=== PATIENT | female | born 1995 | race Caucasian/White ===

== ENCOUNTER 2017-08-26 05:47 | Emergency (ER) | payer BC ==
--- NOTE | 2017-08-26 07:12 | EDPHYS ---
Physician Documentation [facility] Name: Fadumo Adams Age: 22 yrs Sex: Female : 1995 Arrival Date: 08/26/2017 Time: 05:47 Bed 6 Private MD: TONY Physician Armando Redman HPI: 08/26 06:15 This 22 yrs old Female presents to ER via Wheelchair with complaints of Foot cp Injury. 06:15 The patient presents with an injury, pain, that is acute, swelling, tenderness. The cp complaints affect the right ankle. 06:15 Context: resulted from stepping in hole in ground, the patient can partially bear cp weight, the patient is able to ambulate, with moderate difficulty. 06:15 Onset: The symptoms/episode began/occurred last night. Associated signs and symptoms: cp Pertinent negatives calf tenderness, numbness, weakness. Treatment prior to arrival includes: no previous treatment. Historical: - Allergies: 06:05 Iodinated Contrast Media - IV Dye; aa1 06:05 Iodine; aa1 06:05 Shellfish Containing Products; aa1 06:05 Demerol; aa1 - Home Meds: 06:05 citalopram 40 mg oral tab 1 tab once daily [Active]; Klonopin 1 mg oral tab [Active]; aa1 - PMHx: 06:05 Anxiety; Depression; Hypothyroidism; Kidney stones; aa1 - PSHx: 06:05 Tonsillectomy; aa1 - Immunization history:: Flu vaccine is not up to date. - Social history:: Smoking status: Patient uses tobacco products, denies chronic smoking, but will smoke occasionally. ROS: 06:22 Constitutional: Negative for body aches, chills, fever, poor PO intake. cp 06:22 Eyes: Negative for injury, pain, redness, and discharge. cp 06:22 ENT: Negative for drainage from ear(s), ear pain, sore throat, difficulty swallowing, difficulty handling secretions. 06:22 Cardiovascular: Negative for chest pain, edema, palpitations. 06:22 Respiratory: Negative for cough, shortness of breath, wheezing. 06:22 Abdomen/GI: Negative for abdominal pain, nausea, vomiting, and diarrhea. 06:22 MS/extremity: Positive for pain, swelling, tenderness, of the right ankle, Negative for deformity, paresthesias. 06:22 Skin: Negative for cellulitis, rash. 06:22 All other systems are negative. Exam: 06:28 Constitutional: The patient appears in no acute distress, alert, awake, non-toxic, well cp developed, well nourished. 06:28 Head/Face: Normocephalic, atraumatic. cp 06:28 Eyes: Periorbital structures: appear normal, Conjunctiva: normal, no exudate, no injection, Lids and lashes: appear normal, bilaterally. 06:28 ENT: External ear(s): are unremarkable, Nose: is normal, Mouth: is normal, Posterior pharynx: is normal, airway is patent. 06:28 Chest/axilla: Inspection: normal. 06:28 Cardiovascular: Rate: normal. 06:28 Respiratory: the patient does not display signs of respiratory distress, Respirations: normal, no use of accessory muscles, no retractions, no splinting, no tachypnea. 06:28 Abdomen/GI: Exam negative for discomfort, distension, guarding, Inspection: abdomen appears normal. 06:28 Musculoskeletal/extremity: Perfusion: the extremity is normally perfused throughout, Sensation intact. Joints: All joints are normal except the right ankle displays painful range of motion, swelling, tenderness, Achilles tendon palpated and intact, no tenderness palpated at base of right fifth metatarsal or right proximal fibula. 06:28 Skin: cellulitis, is not appreciated, no rash present. Vital Signs: 06:05 BP 119 / 84; Pulse 89; Resp 16; Temp 98.7; Pulse Ox 98% on R/A; Weight 81.65 kg; Height aa1 5 ft. 5 in. (165.10 cm); Pain 8/10; 06:05 Body Mass Index 29.95 (81.65 kg, 165.10 cm) aa1 Procedures: 07:30 Splinting: Splint applied to right ankle using Air Cast, applied by nurse. Examined by cp me, post splint application: neurovascular intact, Patient tolerated well. 07:30 Crutch training provided to patient and/or family. Return demonstration given. cp MDM: 06:04 Patient medically screened. cp 07:00 Differential diagnosis: dislocation, closed fracture, sprain. cp 07:10 Data reviewed: vital signs, nurses notes, radiologic studies, plain films. cp 07:10 Test interpretation: by ED physician or midlevel provider: plain radiologic studies. cp 07:10 Counseling: I had a detailed discussion with the patient and/or guardian regarding: the cp historical points, exam findings, and any diagnostic results supporting the discharge/admit diagnosis, radiology results, to return to the emergency department if symptoms worsen or persist or if there are any questions or concerns that arise at home. 08/26 06:11 Order name: XRAY Ankle RIGHT 3 view; Complete Time: 18:31 cp 08/26 18:31 Interpretation: Report reviewed. cp 08/26 07:07 Order name: Aircast Ankle Splint; Complete Time: 07:30 cp 08/26 07:07 Order name: Crutches; Complete Time: 07:24 cp Administered Medications: No medications were administered Disposition: 08:04 Co-signature as Attending Physician, Armando Redman MD I agree with the assessment and [facility] plan of care. Disposition: 08/26/17 07:12 Discharged to Home. Impression: Sprain of ankle - Right. - Condition is Stable. - Discharge Instructions: Ankle Sprain. - Prescriptions for Ibuprofen 800 mg Oral Tablet - take 1 tablet by ORAL route every 8 hours As needed take with food; 30 tablet. - Work release form, Medication Reconciliation Form, Thank You Letter, Antibiotic Education, Prescription Opioid Use form. - Follow up: Private Physician; When: 5 - 6 days; Reason: Recheck today's complaints. - Problem is new. - Symptoms have improved. Signatures: Dispatcher [employer] EDOlesya Aviles RN RN sv Kern, Alissa, RN RN aa1 Armando Redman MD MD cha Page, Corey, PA PA cp Corrections: (The following items were deleted from the chart) 07:48 07:12 08/26/2017 07:12 Discharged to Home. Impression: Sprain of ankle - Right. sv Condition is Stable. Forms are Medication Reconciliation Form, Thank You Letter, Antibiotic Education, Prescription Opioid Use. Follow up: Private Physician; When: 5 - 6 days; Reason: Recheck today's complaints. Problem is new. Symptoms have improved. cp
--- NOTE | 2017-08-26 07:12 | ER ---
Nurse's Notes [facility] Name: Fadumo Adams Age: 22 yrs Sex: Female : 1995 Arrival Date: 08/26/2017 Time: 05:47 Bed 6 Private MD: Diagnosis: Sprain of ankle-Right Presentation: 08/26 06:00 Presenting complaint: Patient states: she stepped in a hole last night and injured her aa1 R ankle. Swelling noted. Transition of care: patient was not received from another setting of care. Onset of symptoms was August 25, 2017. Initial Sepsis Screen: Does the patient meet any 2 criteria? No. Patient's initial sepsis screen is negative. Does the patient have a suspected source of infection? No. Patient's initial sepsis screen is negative. Care prior to arrival: None. 06:00 Method Of Arrival: Wheelchair aa1 06:00 Acuity: ESTUARDO 4 aa1 Historical: - Allergies: 06:05 Iodinated Contrast Media - IV Dye; aa1 06:05 Iodine; aa1 06:05 Shellfish Containing Products; aa1 06:05 Demerol; aa1 - Home Meds: 06:05 citalopram 40 mg oral tab 1 tab once daily [Active]; Klonopin 1 mg oral tab [Active]; aa1 - PMHx: 06:05 Anxiety; Depression; Hypothyroidism; Kidney stones; aa1 - PSHx: 06:05 Tonsillectomy; aa1 - Immunization history:: Flu vaccine is not up to date. - Social history:: Smoking status: Patient uses tobacco products, denies chronic smoking, but will smoke occasionally. Screenin:10 Abuse screen: Denies threats or abuse. Denies injuries from another. Nutritional aa1 screening: No deficits noted. Tuberculosis screening: No symptoms or risk factors identified. Fall Risk Gait- Impaired (20 pts.). Assessment: 06:10 General: Appears in no apparent distress. comfortable, Behavior is calm, cooperative, aa1 appropriate for age. Pain: Complains of pain in right ankle. Neuro: Level of Consciousness is awake, alert, obeys commands, Oriented to person, place, time, situation, Moves all extremities. Cardiovascular: Pulses are 3+ in right dorsalis pedis artery and left dorsalis pedis artery. Respiratory: Airway is patent Respiratory effort is even, unlabored, Respiratory pattern is regular, symmetrical. GI: No signs and/or symptoms were reported involving the gastrointestinal system. : No signs and/or symptoms were reported regarding the genitourinary system. EENT: No signs and/or symptoms were reported regarding the EENT system. Derm: Skin is intact, is healthy with good turgor, Skin is pink, warm \T\ dry. Musculoskeletal: Circulation, motion, and sensation intact. Capillary refill < 3 seconds, Swelling present in right ankle. Vital Signs: 06:05 BP 119 / 84; Pulse 89; Resp 16; Temp 98.7; Pulse Ox 98% on R/A; Weight 81.65 kg; Height aa1 5 ft. 5 in. (165.10 cm); Pain 8/10; 06:05 Body Mass Index 29.95 (81.65 kg, 165.10 cm) aa1 ED Course: 05:47 Patient arrived in ED. ds1 05:59 Farnaz Bo RN is Primary Nurse. aa1 06:03 Triage completed. aa1 06:03 Armando Camargo PA is PHCP. cp 06:03 Armando Redman MD is Attending Physician. cp 06:05 Arm band placed on right wrist. Patient placed in an exam room, on a stretcher. aa1 06:10 Patient has correct armband on for positive identification. Bed in low position. Call aa1 light in reach. Pulse ox on. NIBP on. 06:58 X-ray completed. Portable x-ray completed in exam room. Patient tolerated procedure kw well. 06:59 XRAY Ankle RIGHT 3 view In Process Unspecified. EDMS 07:30 Air stirrup applied to right ankle. bm6 07:48 No provider procedures requiring assistance completed. Patient did not have IV access sv during this emergency room visit. Administered Medications: No medications were administered Outcome: 07:12 Discharge ordered by MD. cp 07:48 Discharged to home via wheelchair, with crutches, with family. sv 07:48 Condition: stable 07:48 Discharge instructions given to patient, Instructed on discharge instructions, follow up and referral plans. medication usage, crutch walking, Demonstrated understanding of instructions, follow-up care, medications, crutch walking, Prescriptions given X 1. 07:48 Patient left the ED. sv Signatures: Dispatcher [facility] HospitalOlesya Aviles RN RN sv Farnaz Bo RN RN aa1 Hector, Malorie ds1 Alondra Joya Corey, PA PA cp Murray, Brett [facility]
--- NOTE | 2017-08-26 09:12 | RAD REPORT ---
EXAM DESCRIPTION: RAD - Ankle Right 3 View - 08/26/2017 7:00 am CLINICAL HISTORY: Right ankle pain and swelling. COMPARISON: None. FINDINGS: No acute fracture or dislocation is seen. No aggressive marrow lesion.
== END 2017-08-26 07:48 | disposition home or self-care (01) ==
LOC: ER 05:47
DX: S93.401A Sprain of unspecified ligament of right ankle, initial encounter (principal); X58.XXXA Exposure to other specified factors, initial encounter; Y93.01 Activity, walking, marching and hiking; Y92.9 Unspecified place or not applicable; F41.9 Anxiety disorder, unspecified; F32.9 Major depressive disorder, single episode, unspecified; Z72.0 Tobacco use; Z88.5 Allergy status to narcotic agent; Z91.013 Allergy to seafood; Z91.041 Radiographic dye allergy status
CPT/HCPCS: 99284

== ENCOUNTER 2017-12-09 15:11 | Emergency (ER) | payer BC ==
[2017-12-09] MEDS ORDERED: DERMABOND SKIN ADHESIVE TOP ONE (15:29)
--- NOTE | 2017-12-09 15:40 | ER ---
Nurse's Notes [facility] Name: Fadumo Adams Age: 22 yrs Sex: Female : 1995 Arrival Date: 12/09/2017 Time: 15:14 Bed 19 Private MD: out of town, doctor Diagnosis: Laceration without foreign body, left lower leg-foot Presentation: 12/09 15:22 Presenting complaint: Patient states: " I accidentally kicked a paramjit chainsaw." Small ph laceration noted to top of L foot, no bleeding noted. Transition of care: patient was not received from another setting of care. Complicating Factors: There are no complicating factors for this patient. Onset of symptoms was December 09, 2017. Risk Assessment: Do you want to hurt yourself or someone else? Patient reports no desire to harm self or others. Risk Assessment: Do you want to hurt yourself or someone else?. Initial Sepsis Screen: Does the patient meet any 2 criteria? No. Patient's initial sepsis screen is negative. Does the patient have a suspected source of infection? No. Patient's initial sepsis screen is negative. Care prior to arrival: None. 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 - Social history:: Smoking status: Patient/guardian denies using tobacco. - Ebola Screening: : No symptoms or risks identified at this time. - Family history:: not pertinent. - Hospitalizations: : No recent hospitalization is reported. Screenin:05 Abuse screen: Denies threats or abuse. Denies injuries from another. Nutritional rv screening: No deficits noted. Tuberculosis screening: No symptoms or risk factors identified. Fall Risk None identified. Assessment: 15:30 General: Appears in no apparent distress. comfortable, Behavior is calm, cooperative. rv 15:30 Pain: Complains of pain in left foot. Neuro: Level of Consciousness is awake, alert, rv obeys commands, Oriented to person, place, time, situation. Cardiovascular: Capillary refill < 3 seconds. Respiratory: Airway is patent. GI: No signs and/or symptoms were reported involving the gastrointestinal system. : No signs and/or symptoms were reported regarding the genitourinary system. EENT: No signs and/or symptoms were reported regarding the EENT system. Derm: Wound noted dorsum of left foot Wound is LACERATION. Musculoskeletal: LACERATION ON THE LEFT FOOT. Injury Description: Laceration sustained to dorsum of left foot is clean, 0.5 to 2.5 cm long, not bleeding. Vital Signs: 15:23 BP 133 / 81; Pulse 97; Resp 18; Temp 98.5; Pulse Ox 97% on R/A; Weight 83.91 kg; Height ph 5 ft. 6 in. (167.64 cm); Pain 0/10; 15:23 Body Mass Index 29.86 (83.91 kg, 167.64 cm) ph ED Course: 15:14 Patient arrived in ED. mr 15:14 out of town, doctor is Private Physician. mr 15:20 Skinny Kay MD is Attending Physician. rn 15:23 Triage completed. ph 15:25 Arm band placed on. ph 16:05 No provider procedures requiring assistance completed. Patient did not have IV access rv during this emergency room visit. 16:06 Patient has correct armband on for positive identification. Bed in low position. Call rv light in reach. Side rails up X 1. Pulse ox on. NIBP on. 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 Exp: rv 01/08/2020. Lot #: [id number]. } Route: IM; Site: right deltoid; 15:56 Follow up: Response: Medication administered at discharge. rv Outcome: 15:39 Discharge ordered by . rn 16:05 Discharged to home ambulatory. rv 16:05 Condition: good 16:05 Discharge instructions given to patient, Instructed on discharge instructions, follow up and referral plans. wound care. 16:06 Patient left the ED. rv Signatures: Anjelica Umaña Roman, MD MD rn Marj Mead RN RN Joe Sloan RN RN rv
--- NOTE | 2017-12-09 15:40 | EDPHYS ---
Physician Documentation [facility] Name: Fadumo Adams Age: 22 yrs Sex: Female : 1995 Arrival Date: 12/09/2017 Time: 15:14 Bed 19 Private MD: out of town, doctor ED Physician Skinny Kay HPI: 12/09 15:23 This 22 yrs old Female presents to ER via Unassigned with complaints of rn Laceration To Foot. 15:23 The patient has a laceration related to: playing. The laceration(s) is(are) located on rn the left foot. Onset: The symptoms/episode began/occurred just prior to arrival. The patient has not experienced similar symptoms in the past. The patient has not recently seen a physician. Reports walking outside, accidentally kicked a chainsaw with her left foot, + small cut, unknown tetanus status.. 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 - Social history:: Smoking status: Patient/guardian denies using tobacco. - Ebola Screening: : No symptoms or risks identified at this time. - Family history:: not pertinent. - Hospitalizations: : No recent hospitalization is reported. ROS: 15:23 Constitutional: Negative for fever, chills, and weight loss, Skin: + laceration to left rn foot Exam: 15:23 Constitutional: This is a well developed, well nourished patient who is awake, alert, rn and in no acute distress. Skin: Warm, dry MS/ Extremity: Pulses equal, no cyanosis. Neurovascular intact. Full, normal range of motion. Equal circumference. 1cm superficial laceration to dorsum of left distal foot, no bony tenderness Vital Signs: 15:23 BP 133 / 81; Pulse 97; Resp 18; Temp 98.5; Pulse Ox 97% on R/A; Weight 83.91 kg; Height ph 5 ft. 6 in. (167.64 cm); Pain 0/10; 15:23 Body Mass Index 29.86 (83.91 kg, 167.64 cm) ph Laceration: 15:27 Wound Repair of 1cm ( 0.4in ) subcutaneous laceration to left foot. Distal rn neuro/vascular/tendon intact. Wound prep: Extensive cleansing by nurse. Skin closed with 1 thin layer Adhesive skin closure using Dermabond. Dressed with steristrips. Patient tolerated well. MDM: 15:20 Patient medically screened. rn 15:27 Differential diagnosis: superficial laceration. Data reviewed: vital signs, nurses rn notes, and as a result, I will discharge patient. Counseling: I had a detailed discussion with the patient and/or guardian regarding: the historical points, exam findings, and any diagnostic results supporting the discharge/admit diagnosis, the need for outpatient follow up, to return to the emergency department if symptoms worsen or persist or if there are any questions or concerns that arise at home. Response to treatment: the patient's symptoms have markedly improved after treatment, and as a result, I will discharge patient. 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 Exp: rv 01/08/2020. Lot #: [id number]. } Route: IM; Site: right deltoid; 15:56 Follow up: Response: Medication administered at discharge. rv Disposition: 12/09/17 15:39 Discharged to Home. Impression: Laceration without foreign body, left lower leg - foot. - Condition is Stable. - Discharge Instructions: Tissue Adhesive Wound Care, Laceration Care, Adult, Dental Work and . - Medication Reconciliation Form, Thank You Letter, Antibiotic Education, Prescription Opioid Use, Work release form form. - Follow up: Private Physician; When: As needed; Reason: Recheck today's complaints, Re-evaluation by your physician. - Problem is new. - Symptoms have improved. Signatures: Skinny Kay MD MD rn Hall, Patricia, RN RN ph Vicente, Ronaldo, RN RN rv Corrections: (The following items were deleted from the chart) 16:06 15:39 12/09/2017 15:39 Discharged to Home. Impression: Laceration without foreign body, rv left lower leg - foot. Condition is Stable. Forms are Medication Reconciliation Form, Thank You Letter, Antibiotic Education, Prescription Opioid Use. Follow up: Private Physician; When: As needed; Reason: Recheck today's complaints, Re-evaluation by your physician. Problem is new. Symptoms have improved. rn
[2017-12-09] MEDS ORDERED: TETANUS & DIPHTHERIA TOX,ADULT 0.5 ML VIAL ONE (15:56)
== END 2017-12-09 16:06 | disposition home or self-care (01) ==
LOC: ER 15:11
PROC: 0JQR0ZZ Repair Left Foot Subcutaneous Tissue and Fascia, Open Approach (ICD-10-PCS; principal; 2017-12-09)
DX: S91.312A Laceration without foreign body, left foot, initial encounter (principal); W22.8XXA Striking against or struck by other objects, initial encounter; Y93.89 Activity, other specified; Y92.89 Other specified places as the place of occurrence of the external cause; Z23 Encounter for immunization; Z88.5 Allergy status to narcotic agent; Z91.013 Allergy to seafood; Z91.041 Radiographic dye allergy status; Z91.048 Other nonmedicinal substance allergy status; F41.9 Anxiety disorder, unspecified; F32.9 Major depressive disorder, single episode, unspecified
CPT/HCPCS: 90714; 99283

== ENCOUNTER 2018-07-26 13:47 | Emergency (ER) | payer BC ==
[2018-07-26 14:31] LABS: Urine Blood TRACE (NEG); Urine Glucose NEGATIVE (NEG); Urine Protein NEGATIVE (NEG)
[2018-07-26] MEDS ORDERED: METOCLOPRAMIDE 10 MG/2mL INJ ONE (14:39)
[2018-07-26] MEDS ORDERED: ONDANSETRON 4 MG/2 ML VIAL ONE (14:40)
[2018-07-26] MEDS ORDERED: DIPHENHYDRAMINE 50 MG/ML VIAL ONE (14:40)
[2018-07-26] MEDS ORDERED: NA CHLORIDE 0.9% 250 ML ONE (14:44)
[2018-07-26 14:56] LABS: Absolute Lymphocytes (CBC) 2.5 K/uL (0.7-4.9); Absolute Monocytes 0.4 K/uL (0.1-1.3); Absolute Neutrophil 3.5 K/uL (1.8-8.0); Basophils % 0.5 % (0-1.3); Eosinophils % 2.1 % (0-4.4); Hematocrit 44.8 % (36.0-45.0); Lymphocytes % 37.6 % (15.3-44.8); MPV 8.7 fL (7.6-11.3); Monocytes % 6.1 % (3.3-12.3); RBC Red Blood Cell Count 5.22 M/uL (3.86-4.86)
--- NOTE | 2018-07-26 14:57 | RAD REPORT ---
EXAM DESCRIPTION: CT - Head Brain Wo Cont - 07/26/2018 2:52 pm CLINICAL HISTORY: Headache, blurred vision COMPARISON: None. TECHNIQUE: Axial 5 mm thick images of the head were obtained without IV contrast. All CT scans are performed using dose optimization technique as appropriate and may include automated exposure control or mA/KV adjustment according to patient size. FINDINGS: No intracranial hemorrhage, mass, edema or shift of mid-line structures. No acute infarcti on changes seen. No abnormal extra-axial fluid collections. Ventricles are normal. Mastoid air cells and visualized portions of the paranasal sinuses are clear. No acute bony findings. IMPRESSION: Negative non-contrast CT head examination.
[2018-07-26 15:07] LABS: ALT/SGPT 28 U/L (12-78); AST/SGOT 18 U/L (15-37); Albumin 4.2 g/dL (3.4-5.0); Alkaline Phosphatase 81 U/L (45-117); BUN Blood Urea Nitrogen 12 mg/dL (7-18); Bicarbonate 30 mmol/L (21-32); Bilirubin Total 0.3 mg/dL (0.2-1.0); Glucose Level 91 mg/dL (74-106); Potassium 4.2 mmol/L (3.5-5.1); Sodium Level 140 mmol/L (136-145)
[2018-07-26] MEDS ORDERED: KETOROLAC 30 MG/ML INJ ONE (15:42)
[2018-07-26] MEDS ORDERED: DEXAMETHASONE 10 MG/ML VIAL ONE (15:42)
--- NOTE | 2018-07-26 16:34 | EDPHYS ---
Physician Documentation [facility] Name: Fadumo Adams Age: 22 yrs Sex: Female : 1995 Arrival Date: 07/26/2018 Time: 13:49 Bed 19 Private MD: Bashir Lanier ED Physician Armando Redman HPI: 07/26 14:21 This 22 yrs old Female presents to ER via Ambulatory with complaints of jmm Headache, Numbness Of Face, Muscle Spasms. 14:21 The patient complains of pain to the right temporal area. The patient describes the jmm headache as aching. Onset: The symptoms/episode began/occurred gradually, 1 day(s) ago. Associated signs and symptoms: Pertinent positives: blurred vision. This is a 22 year old female with a history of anxiety, depression, migraines that presents to the ED with complaints of right sided headache gradually developing 1 day ago with blurred vision, sensitivity to light. Patient states today she developed generalized muscle aches and spasms. . Denies fever. . Historical: - Allergies: 13:55 Iodinated Contrast Media - IV Dye; la1 13:55 Demerol; la1 13:55 Iodine; la1 13:55 Shellfish Containing Products; la1 13:55 PENICILLINS; la1 13:55 Wellbutrin; la1 - PMHx: 13:55 Anxiety; Depression; Hypothyroidism; Kidney stones; Migraines; la1 - Immunization history:: Adult Immunizations up to date. - Social history:: Smoking status: Patient/guardian denies using tobacco. - Ebola Screening: : No symptoms or risks identified at this time. ROS: 14:21 Constitutional: Negative for fever, chills, and weight loss, Cardiovascular: Negative jmm for chest pain, palpitations, and edema, Respiratory: Negative for shortness of breath, cough, wheezing, and pleuritic chest pain. 14:21 Neuro: Positive for headache, numbness, visual changes. 14:21 All other systems are negative. Exam: 14:21 Head/Face: atraumatic. Eyes: EOMI, no conjunctival erythema appreciated ENT: Moist jmm Mucus Membranes Neck: Trachea midline, Supple Chest/axilla: Normal chest wall appearance and motion. Cardiovascular: Regular rate and rhythm. No edema appreciated Respiratory: Normal respirations, no respiratory distress appreciated Abdomen/GI: Non distended, soft Back: Normal ROM 14:21 Constitutional: The patient appears alert, awake, anxious, uncomfortable. 14:21 Musculoskeletal/extremity: ROM: intact in all extremities. 14:21 Neuro: Orientation: is normal, Mentation: is normal, Memory: is normal, Cerebellar function: normal finger to nose testing, Gait: is steady. 14:21 Psych: Behavior/mood is pleasant, cooperative, anxious. Vital Signs: 13:55 BP 127 / 74; Pulse 102; Resp 16; Temp 97.5; Pulse Ox 98% on R/A; Weight 79.38 kg; la1 Height 5 ft. 6 in. (167.64 cm); 15:00 BP 112 / 68; Pulse 79; Resp 18; Pulse Ox 99% on R/A; Pain 7/10; em 16:00 BP 108 / 74; Pulse 87; Resp 18; Pulse Ox 99% on R/A; Pain 0/10; em 13:55 Body Mass Index 28.25 (79.38 kg, 167.64 cm) la1 MDM: 14:21 Patient medically screened. [facility] 16:00 ED course: Headache is relieved in the ED. Patient's neck is supple. patient is [facility] afebrile. I do not suspect meningitis. Patient advised to follow up with Dr. Benedict for reevaluation. . 16:32 Data reviewed: vital signs, nurses notes. Counseling: I had a detailed discussion with [facility] the patient and/or guardian regarding: the historical points, exam findings, and any diagnostic results supporting the discharge/admit diagnosis, the need for outpatient follow up, to return to the emergency department if symptoms worsen or persist or if there are any questions or concerns that arise at home. 07/26 14:22 Order name: CBC with Diff; Complete Time: 15:09 [facility] 07/26 14:22 Order name: CMP; Complete Time: 15: [facility] 07/26 14:22 Order name: CT Head Brain wo Cont; Complete Time: 15:09 [facility] 07/26 14:28 Order name: Urine Dipstick--Ancillary (enter results); Complete Time: 14:31 07/26 14:28 Order name: Urine --Ancillary (enter results); Complete Time: 14:31 07/26 14:22 Order name: Saline Lock; Complete Time: 14:47 [facility] 04 14:22 Order name: Urine Dipstick-Ancillary (obtain specimen); Complete Time: 14:26 [facility] Administered Medications: 14:47 Drug: Reglan 20 mg Route: IVP; Site: right antecubital; la1 15:30 Follow up: Response: No adverse reaction em 14:47 Drug: diphenhydrAMINE 25 mg Route: IVP; Site: right antecubital; la1 15:30 Follow up: Response: No adverse reaction; Pain is decreased em 14:48 Drug: NS 0.9% 250 ml Route: IV; Rate: bolus; Site: right antecubital; la1 15:30 Follow up: IV Status: Completed infusion; IV Intake: 250ml em 15:38 Drug: Ketorolac 30 mg Route: IVP; Site: right antecubital; la1 16:00 Follow up: Response: No adverse reaction; Pain is decreased em 15:38 Drug: Decadron - Dexamethasone 10 mg Route: IVP; Site: right antecubital; la1 16:00 Follow up: Response: No adverse reaction; Pain is decreased em Disposition: 07/27 08:16 Co-signature as Attending Physician, Armando Redman MD I agree with the assessment and yefri plan of care. Disposition: 07/26/18 16:33 Discharged to Home. Impression: Migraine. - Condition is Stable. - Discharge Instructions: Migraine Headache. - Medication Reconciliation Form, Thank You Letter, Antibiotic Education, Prescription Opioid Use form. - Follow up: Nii Benedict MD; When: 2 - 3 days; Reason: Recheck today's complaints, Continuance of care, Re-evaluation by your physician. Signatures: Dispatcher [employer] Armando Mcmanus MD MD cha Mickail, Joel, PA PA [facility] Humza Mendez, BOND RUNNER BOND RUNNER Dada Choi RN RN la1 Corrections: (The following items were deleted from the chart) 07/26 16:56 16:33 07/26/2018 16:33 Discharged to Home. Impression: Migraine. Condition is Stable. em Forms are Medication Reconciliation Form, Thank You Letter, Antibiotic Education, Prescription Opioid Use. Follow up: Nii Benedict; When: 2 - 3 days; Reason: Recheck today's complaints, Continuance of care, Re-evaluation by your physician. danielle
--- NOTE | 2018-07-26 16:34 | ER ---
Nurse's Notes [facility] Name: Fadumo Adams Age: 22 yrs Sex: Female : 1995 Arrival Date: 07/26/2018 Time: 13:49 Bed 19 Private MD: Bashir Lanier Diagnosis: Migraine Presentation: 07/26 13:53 Presenting complaint: Patient states: Yesterday my muscles started having spasms and la1 then around 1700 my vision got a little blurry and weird, then I got a headache, I have had migraines before but the vision is worse with this one and I am having pain on the right side of my face. Transition of care: patient was not received from another setting of care. Onset of symptoms was July 26, 2018. Risk Assessment: Do you want to hurt yourself or someone else? Patient reports no desire to harm self or others. Initial Sepsis Screen: Does the patient meet any 2 criteria? No. Patient's initial sepsis screen is negative. Does the patient have a suspected source of infection? No. Patient's initial sepsis screen is negative. Care prior to arrival: None. 13:53 Method Of Arrival: Ambulatory la1 13:53 Acuity: ESTUARDO 3 la1 Historical: - Allergies: 13:55 Iodinated Contrast Media - IV Dye; la1 13:55 Demerol; la1 13:55 Iodine; la1 13:55 Shellfish Containing Products; la1 13:55 PENICILLINS; la1 13:55 Wellbutrin; la1 - PMHx: 13:55 Anxiety; Depression; Hypothyroidism; Kidney stones; Migraines; la1 - Immunization history:: Adult Immunizations up to date. - Social history:: Smoking status: Patient/guardian denies using tobacco. - Ebola Screening: : No symptoms or risks identified at this time. Screenin:56 VAN Screening: Arm Drift: Patient shows no arm weakness. Patient is VAN negative. la1 14:05 Abuse screen: Denies threats or abuse. Nutritional screening: No deficits noted. em Tuberculosis screening: No symptoms or risk factors identified. Fall Risk None identified. Assessment: 14:10 General: Appears in no apparent distress. comfortable, Behavior is calm, cooperative, em Denies fever. Pain: Complains of pain in right temporal area Pain currently is 9 out of 10 on a pain scale. Quality of pain is described as sharp. Neuro: Level of Consciousness is awake, alert, obeys commands, Oriented to person, place, time, situation, Salt Cutter are equal bilaterally Moves all extremities. Gait is steady, Speech is normal, Facial symmetry appears normal, Pupils are PERRLA, Reports dizziness, headache in right paresthesias weakness. Cardiovascular: Denies chest pain, Heart tones S1 S2 present Capillary refill < 3 seconds Patient's skin is warm and dry. Respiratory: Reports cough that is Airway is patent Respiratory effort is even, unlabored, Respiratory pattern is regular, symmetrical, Breath sounds are clear bilaterally. GI: Abdomen is flat, Reports nausea, vomiting. : Urine is clear. EENT: Denies nasal congestion. Derm: Skin is intact, is healthy with good turgor, Skin is pink, warm \T\ dry. Musculoskeletal: Capillary refill < 3 seconds, Range of motion: intact in all extremities. 14:25 Reassessment: I agree with previous assessment. hb 15:00 Reassessment: Patient appears in no apparent distress at this time. Patient is alert, em oriented x 3, equal unlabored respirations, skin warm/dry/pink. reports feeling slightly better, rates pain 7/10. 16:00 Reassessment: Patient appears in no apparent distress at this time. Patient and/or em family updated on plan of care and expected duration. Pain level reassessed. Patient is alert, oriented x 3, equal unlabored respirations, skin warm/dry/pink. Patient denies pain at this time. Patient states feeling better. Patient states symptoms have improved. Vital Signs: 13:55 BP 127 / 74; Pulse 102; Resp 16; Temp 97.5; Pulse Ox 98% on R/A; Weight 79.38 kg; la1 Height 5 ft. 6 in. (167.64 cm); 15:00 BP 112 / 68; Pulse 79; Resp 18; Pulse Ox 99% on R/A; Pain 7/10; em 16:00 BP 108 / 74; Pulse 87; Resp 18; Pulse Ox 99% on R/A; Pain 0/10; em 13:55 Body Mass Index 28.25 (79.38 kg, 167.64 cm) la1 ED Course: 13:49 Patient arrived in ED. as 13:49 Bashir Lanier MD is Private Physician. as 13:54 Triage completed. la1 13:55 Arm band placed on left wrist. la1 13:59 Humza Mendez LVN is Primary Nurse. em 14:03 Jeromy Rothman PA is PHCP. jmm 14:03 Armando Redman MD is Attending Physician. jmm 14:05 Patient has correct armband on for positive identification. Placed in gown. Bed in low em position. Call light in reach. Pulse ox on. NIBP on. 14:45 Initial lab(s) drawn, by me, sent to lab. Urine collected: clean catch specimen, clear. em Inserted saline lock: 20 gauge in right antecubital area, using aseptic technique. Blood collected. 14:51 CT completed. Patient tolerated procedure well. Patient moved back from CT. mw3 14:51 CT Head Brain wo Cont In Process Unspecified. EDMS 16:32 Nii Benedict MD is Referral Physician. jmm 16:54 No provider procedures requiring assistance completed. IV discontinued, intact, em bleeding controlled, No redness/swelling at site. Pressure dressing applied. Administered Medications: 14:47 Drug: Reglan 20 mg Route: IVP; Site: right antecubital; la1 15:30 Follow up: Response: No adverse reaction em 14:47 Drug: diphenhydrAMINE 25 mg Route: IVP; Site: right antecubital; la1 15:30 Follow up: Response: No adverse reaction; Pain is decreased em 14:48 Drug: NS 0.9% 250 ml Route: IV; Rate: bolus; Site: right antecubital; la1 15:30 Follow up: IV Status: Completed infusion; IV Intake: 250ml em 15:38 Drug: Ketorolac 30 mg Route: IVP; Site: right antecubital; la1 16:00 Follow up: Response: No adverse reaction; Pain is decreased em 15:38 Drug: Decadron - Dexamethasone 10 mg Route: IVP; Site: right antecubital; la1 16:00 Follow up: Response: No adverse reaction; Pain is decreased em Intake: 15:30 IV: 250ml; Total: 250ml. em Outcome: 16:33 Discharge ordered by . jmm 16:54 Discharged to home ambulatory, with family. em 16:54 Condition: good 16:54 Discharge instructions given to patient, Instructed on discharge instructions, follow up and referral plans. Demonstrated understanding of instructions, follow-up care. 16:56 Patient left the ED. em Signatures: Dispatcher [employer] Jeromy Gaxiola PA PA jmm Munoz, Edgar, GROUP PRACTICE PEDIATRICIAN GROUP PRACTICE PEDIATRICIAN Jayashree Sanches Lee RN RN la1 Joy Hsu RN RN Bethany Dumont mw3
== END 2018-07-26 16:56 | disposition home or self-care (01) ==
LOC: ER 13:47
DX: G43.909 Migraine, unspecified, not intractable, without status migrainosus (principal); F41.9 Anxiety disorder, unspecified; F32.9 Major depressive disorder, single episode, unspecified; E03.9 Hypothyroidism, unspecified; Z88.8 Allergy status to other drugs, medicaments and biological substances; Z91.041 Radiographic dye allergy status; Z88.5 Allergy status to narcotic agent; Z88.0 Allergy status to penicillin; Z91.013 Allergy to seafood
CPT/HCPCS: 36415; 70450; 80053; 81003; 81025; 85025; 96361; 96374; 96375; 99284; J1100; J2405; J2765

== ENCOUNTER 2018-08-08 22:16 | Emergency (ER) | payer BC ==
[2018-08-08] MEDS ORDERED: CODEINE 30MG/APAP 300MG TAB ONE ×2 (23:02→23:28)
[2018-08-08] MEDS ORDERED: CYCLOBENZAPRINE 10 MG TAB ONE (23:02)
[2018-08-08] MEDS ORDERED: IBUPROFEN 200 MG TAB PO ONE (23:03)
--- NOTE | 2018-08-09 00:28 | ER ---
Nurse's Notes [facility] Name: Fadumo Adams Age: 22 yrs Sex: Female : 1995 Arrival Date: 08/08/2018 Time: 22:18 Bed 16 Private MD: Bashir Lanier Diagnosis: Migraine Presentation: 08/08 22:22 Presenting complaint: Patient states: For the past 2 weeks every day I have had a la1 headache, I threw up once today. Pt seen here and at PCP but not getting any better. Transition of care: patient was not received from another setting of care. Onset of symptoms was August 08, 2018. Risk Assessment: Do you want to hurt yourself or someone else? Patient reports no desire to harm self or others. Initial Sepsis Screen: Does the patient meet any 2 criteria? No. Patient's initial sepsis screen is negative. Does the patient have a suspected source of infection? No. Patient's initial sepsis screen is negative. Care prior to arrival: None. 22:22 Method Of Arrival: Ambulatory la1 22:22 Acuity: ESTUARDO 3 la1 Triage Assessment: 22:45 Headache History: The patient has had previous headaches and this one is more severe jb4 than previous episodes. General: Appears in no apparent distress. uncomfortable, Behavior is calm, cooperative. Pain: Also complains of. Pain: Pain began gradually. NURSE OFFICE: 22:21 LMP 08/08/2018 la1 Historical: - Allergies: 22:21 Demerol; la1 22:21 Iodinated Contrast Media - IV Dye; la1 22:21 Iodine; la1 22:21 PENICILLINS; la1 22:21 Shellfish Containing Products; la1 22:21 Wellbutrin; la1 - Home Meds: 08/09 00:33 Clonazepam Oral [Active]; Propranolol Oral [Active]; Fluoxetine Oral [Active]; jb4 montelukast oral oral [Active]; Claritin Oral [Active]; - PMHx: 08/08 22:21 Anxiety; Depression; Hypothyroidism; Kidney stones; Migraines; la1 - Immunization history:: Adult Immunizations up to date. - Social history:: Smoking status: Patient/guardian denies using tobacco. - Ebola Screening: : No symptoms or risks identified at this time. Screenin:45 Abuse screen: Denies threats or abuse. Nutritional screening: No deficits noted. jb4 Tuberculosis screening: No symptoms or risk factors identified. Fall Risk None identified. Assessment: 22:45 General: Appears in no apparent distress. uncomfortable, Behavior is calm, cooperative, jb4 appropriate for age. Pain: Complains of pain in headache Pain radiates to jaw, neck Pain currently is 10 out of 10 on a pain scale. Quality of pain is described as pressure. Neuro: Level of Consciousness is awake, alert, obeys commands, Oriented to person, place, time, situation. Cardiovascular: Patient's skin is warm and dry. Respiratory: Airway is patent Respiratory effort is even, unlabored, Respiratory pattern is regular, symmetrical. GI: No signs and/or symptoms were reported involving the gastrointestinal system. : No signs and/or symptoms were reported regarding the genitourinary system. EENT: No signs and/or symptoms were reported regarding the EENT system. Derm: Skin is intact, Skin is pink, warm \T\ dry. Musculoskeletal: Circulation, motion, and sensation intact. Range of motion: intact in all extremities. 08/09 00:00 Reassessment: Patient appears in no apparent distress at this time. Patient and/or jb4 family updated on plan of care and expected duration. Pain level reassessed. Patient is alert, oriented x 3, equal unlabored respirations, skin warm/dry/pink. Patient states feeling better. 00:59 Reassessment: Patient appears in no apparent distress at this time. Patient and/or jb4 family updated on plan of care and expected duration. Pain level reassessed. Patient is alert, oriented x 3, equal unlabored respirations, skin warm/dry/pink. PT discharged with significant other, reports feeling better. ambulates to the lobby with steady gate. respirations even and unlabored. Vital Signs: 08/08 22:21 BP 129 / 98; Pulse 108; Resp 16; Temp 98.1; Pulse Ox 98% on R/A; Weight 79.38 kg; la1 Height 5 ft. 6 in. (167.64 cm); 23:30 BP 126 / 88; Pulse 74; Resp 16; Pulse Ox 99% on R/A; jb4 08/09 00:30 BP 123 / 69; Pulse 78; Resp 16; Pulse Ox 99% on R/A; jb4 08/08 22:21 Body Mass Index 28.25 (79.38 kg, 167.64 cm) la1 ED Course: 08/08 22:18 Patient arrived in ED. es 22:18 Bashir Lanier MD is Private Physician. es 22:21 Arm band placed on right wrist. la1 22:23 Triage completed. la1 22:25 [facility] pm1 22:25 Cooper Diggs MD is Attending Physician. pm1 22:42 Hugo Kasper, RN is Primary Nurse. jb4 22:45 Patient has correct armband on for positive identification. Bed in low position. Call jb4 light in reach. Side rails up X 1. Pulse ox on. NIBP on. 08/09 00:47 Nii Benedict MD is Referral Physician. pm1 00:59 No provider procedures requiring assistance completed. Patient did not have IV access jb4 during this emergency room visit. Administered Medications: 08/08 23:00 Drug: Flexeril 10 mg Route: PO; jb4 08/09 00:00 Follow up: Response: No adverse reaction; Pain is decreased jb4 08/08 23:00 Drug: Ibuprofen 600 mg Route: PO; jb4 08/09 00:00 Follow up: Response: No adverse reaction; Pain is decreased jb4 08/08 23:00 Drug: Tylenol #3 (300 mg-30 mg) 2 tabs Route: PO; jb4 08/09 00:00 Follow up: Response: No adverse reaction; Pain is decreased jb4 Outcome: 00:27 Discharge ordered by MD. pm1 00:59 Discharged to home ambulatory, with significant other. jb4 00:59 Condition: stable 00:59 Discharge instructions given to patient, significant other, Instructed on discharge instructions, follow up and referral plans. Demonstrated understanding of instructions, follow-up care. 01:05 Patient left the ED. jb4 Signatures: Narcisa Zazueta Lee, RN RN la1 Domenic Sutton NP [facility] pm1 Hugo Kasper, RN RN jb4 Corrections: (The following items were deleted from the chart) 08/08 22:23 22:21 BP 129 / 198; Pulse 108bpm; Resp 16bpm; Pulse Ox 98% RA; Temp 98.1F; 79.38 kg; la1 Height 5 ft. 6 in.; BMI: 28.2; la1
--- NOTE | 2018-08-09 00:28 | EDPHYS ---
Physician Documentation [facility] Name: Fadumo Adams Age: 22 yrs Sex: Female : 1995 Arrival Date: 08/08/2018 Time: 22:18 Bed 16 Private MD: Bashir Lanier ED Physician Cooper Diggs HPI: 08/08 23:01 This 22 yrs old Female presents to ER via Ambulatory with complaints of pm1 Headache. 23:01 The patient complains of pain to the top of head, forehead, left side of the back of pm1 head, left occipital area, left base of the skull, right side of the back of head, right occipital area and right base of the skull. The patient describes the headache as aching. Onset: The symptoms/episode began/occurred 3 week(s) ago. Associated signs and symptoms: Pertinent positives: nausea, vomiting, Pertinent negatives: fever. Severity of symptoms: in the emergency department the pain is unchanged. Headache History: The patient has had previous headaches and this one is similar to previous episodes. The symptoms are alleviated by Darkened room, quiet. The patient has experienced similar episodes in the past, multiple times. Dr. Benedict two days ago for the same complaint in the ER two weeks ago. Medications given by Dr Benedict did not help per patient. 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 - Social history:: Smoking status: Patient/guardian denies using tobacco. - Ebola Screening: : No symptoms or risks identified at this time. ROS: 23:01 Constitutional: Negative for fever, chills, and weight loss, Eyes: Negative for injury, pm1 pain, redness, and discharge, ENT: Negative for injury, pain, and discharge, Neck: Negative for injury, pain, and swelling, Cardiovascular: Negative for chest pain, palpitations, and edema, Respiratory: Negative for shortness of breath, cough, wheezing, and pleuritic chest pain. 23:01 Back: Negative for injury and pain, : Negative for injury, bleeding, discharge, and swelling, MS/Extremity: Negative for injury and deformity, Skin: Negative for injury, rash, and discoloration. 23:01 Abdomen/GI: Positive for nausea, Negative for abdominal pain, vomiting, diarrhea. 23:01 Neuro: Positive for headache, Negative for dizziness, numbness, tingling, weakness. Exam: 23:01 Constitutional: This is a well developed, well nourished patient who is awake, alert, pm1 and in no acute distress. Eyes: Pupils equal round and reactive to light, extra-ocular motions intact. Lids and lashes normal. Conjunctiva and sclera are non-icteric and not injected. Cornea within normal limits. Periorbital areas with no swelling, redness, or edema. ENT: Nares patent. No nasal discharge, no septal abnormalities noted. Tympanic membranes are normal and external auditory canals are clear. Oropharynx with no redness, swelling, or masses, exudates, or evidence of obstruction, uvula midline. Mucous membranes moist. 23:01 Neck: Trachea midline, no thyromegaly or masses palpated, and no cervical lymphadenopathy. Supple, full range of motion without nuchal rigidity, or vertebral point tenderness. No Meningismus. Chest/axilla: Normal chest wall appearance and motion. Nontender with no deformity. No lesions are appreciated. Cardiovascular: Regular rate and rhythm with a normal S1 and S2. No gallops, murmurs, or rubs. Normal PMI, no JVD. No pulse deficits. Respiratory: Lungs have equal breath sounds bilaterally, clear to auscultation and percussion. No rales, rhonchi or wheezes noted. No increased work of breathing, no retractions or nasal flaring. Abdomen/GI: Soft, non-tender, with normal bowel sounds. No distension or tympany. No guarding or rebound. No evidence of tenderness throughout. Back: No spinal tenderness. No costovertebral tenderness. Full range of motion. Skin: Warm, dry with normal turgor. Normal color with no rashes, no lesions, and no evidence of cellulitis. MS/ Extremity: Pulses equal, no cyanosis. Neurovascular intact. Full, normal range of motion. 23:01 Head/face: Noted is no obvious of injury or deformity except tenderness, of the top of head, forehead, left side of the back of head, left occipital area, left base of the skull, right side of the back of head, right occipital area and right base of the skull. 23:01 Neuro: Orientation: is normal, Cranial nerves: CN II- XII are normal as tested, Cerebellar function: normal finger to nose testing, Motor: is normal, moves all fours, Sensation: is normal, no obvious gross deficits, Gait: is steady, at a normal pace, without difficulty. Vital Signs: 22:21 BP 129 / 98; Pulse 108; Resp 16; Temp 98.1; Pulse Ox 98% on R/A; Weight 79.38 kg; la1 Height 5 ft. 6 in. (167.64 cm); 23:30 BP 126 / 88; Pulse 74; Resp 16; Pulse Ox 99% on R/A; jb4 08/09 00:30 BP 123 / 69; Pulse 78; Resp 16; Pulse Ox 99% on R/A; jb4 08/08 22:21 Body Mass Index 28.25 (79.38 kg, 167.64 cm) la1 MDM: 08/08 22:27 Patient medically screened. pm1 22:49 ED course: Offered to give the patient Reglan, Benadryl, and Toradol for her headache. pm1 When she was here last time the medications reduced her pain. However she believes that she had a reaction to the medications, possibly Decadron from the last visit, redness to upper body and face. Reglan and Decadron were new to her at that time. Patient requested medication by mouth and I do not want to give her medications that she might have a potential allergic reaction too. 08/09 00:18 Data reviewed: vital signs. Data interpreted: Pulse oximetry: on room air is 98 %. pm1 Interpretation: normal. Counseling: I had a detailed discussion with the patient and/or guardian regarding: the historical points, exam findings, and any diagnostic results supporting the discharge/admit diagnosis, the need for outpatient follow up, for definitive care, a neurologist, to return to the emergency department if symptoms worsen or persist or if there are any questions or concerns that arise at home. Administered Medications: 08/08 23:00 Drug: Flexeril 10 mg Route: PO; jb4 08/09 00:00 Follow up: Response: No adverse reaction; Pain is decreased 4 08/08 23:00 Drug: Ibuprofen 600 mg Route: PO; 4 08/09 00:00 Follow up: Response: No adverse reaction; Pain is decreased 4 08/08 23:00 Drug: Tylenol #3 (300 mg-30 mg) 2 tabs Route: PO; jb4 08/09 00:00 Follow up: Response: No adverse reaction; Pain is decreased jb4 Disposition: 08/09/18 00:27 Discharged to Home. Impression: Migraine. - Condition is Stable. - Discharge Instructions: Migraine Headache. - Medication Reconciliation Form, Thank You Letter, Antibiotic Education, Prescription Opioid Use form. - Follow up: Emergency Department; When: As needed; Reason: Worsening of condition. Follow up: Private Physician; When: 2 - 3 days; Reason: Recheck today's complaints, Continuance of care, Re-evaluation by your physician. Follow up: Nii Benedict MD; When: 2 - 3 days; Reason: Recheck today's complaints, Continuance of care, Re-evaluation by your physician. - Problem is new. - Symptoms have improved. Addendum: 08/11/2018 01:25 Co-signature as Attending Physician, Cooper Diggs MD. g s Signatures: Dada Browning RN RN la1 Domenic Sutton NP AUTOMOBILE LIGHTS ASSEMBLER pm1 Hugo Kasper RN RN jb4 Cooper Diggs MD MD Corrections: (The following items were deleted from the chart) 08/09 00:47 00:27 08/09/2018 00:27 Discharged to Home. Impression: Migraine. Condition is Stable. pm1 Forms are Medication Reconciliation Form, Thank You Letter, Antibiotic Education, Prescription Opioid Use. Follow up: Emergency Department; When: As needed; Reason: Worsening of condition. Follow up: Private Physician; When: 2 - 3 days; Reason: Recheck today's complaints, Continuance of care, Re-evaluation by your physician. Problem is new. Symptoms have improved. pm1 01:05 00:47 08/09/2018 00:27 Discharged to Home. Impression: Migraine. Condition is Stable. jb4 Discharge Instructions: Migraine Headache. Forms are Medication Reconciliation Form, Thank You Letter, Antibiotic Education, Prescription Opioid Use. Follow up: Emergency Department; When: As needed; Reason: Worsening of condition. Follow up: Private Physician; When: 2 - 3 days; Reason: Recheck today's complaints, Continuance of care, Re-evaluation by your physician. Follow up: Nii Benedict; When: 2 - 3 days; Reason: Recheck today's complaints, Continuance of care, Re-evaluation by your physician. Problem is new. Symptoms have improved. pm1
== END 2018-08-09 01:05 | disposition home or self-care (01) ==
LOC: ER 22:16
DX: G43.909 Migraine, unspecified, not intractable, without status migrainosus (principal); F41.9 Anxiety disorder, unspecified; F32.9 Major depressive disorder, single episode, unspecified; E03.9 Hypothyroidism, unspecified; Z91.041 Radiographic dye allergy status; Z88.5 Allergy status to narcotic agent; Z88.0 Allergy status to penicillin; Z91.013 Allergy to seafood
CPT/HCPCS: 99283

== ENCOUNTER 2019-05-05 18:03 | Emergency (ER) | payer BC ==
--- OUTSIDE RECORDS SUMMARY | 2019-05-05 18:06 | XMS REPORT ---
:1995 [facility] Address [address] [place] [address] [place] [id number] Care Team Providers Name Role Phone Unavailable Unavailable Unavailable Problems This patient has no known problems. Allergies, Adverse Reactions, Alerts This patient has no known allergies or adverse reactions. Medications This patient has no known medications.
[2019-05-05 18:41] LABS: Absolute Lymphocytes (CBC) 3.6 K/uL (0.7-4.9); Basophils % 0.7 % (0-1.3); Hematocrit 43.7 % (36.0-45.0); Lymphocytes % 31.5 % (15.3-44.8); MPV 8.3 fL (7.6-11.3)
[2019-05-05 18:48] LABS: Urine Blood NEGATIVE (NEG); Urine Glucose NEGATIVE (NEG); Urine Protein NEGATIVE (NEG); Urine Specific Gravity <1.005 (1.005-1.030); Urine pH 5.5 (5.0-7.0)
[2019-05-05] MEDS ORDERED: KETOROLAC 30 MG/ML INJ ONE (18:51)
[2019-05-05] MEDS ORDERED: NA CHLORIDE 0.9% 1,000 ML ONE (18:51)
[2019-05-05 18:58] LABS: BUN Blood Urea Nitrogen 10 mg/dL (7-18); Bicarbonate 26 mmol/L (21-32); Glucose Level 116 mg/dL (74-106); Potassium 3.9 mmol/L (3.5-5.1); Sodium Level 141 mmol/L (136-145)
[2019-05-05 19:37] LABS: Urine Bacteria <20 /HPF (<20); Urine Culture Reflex Order REFLEXED; Urine Mucus 1+ /HPF (NONE SEEN); Urine RBC <5 /HPF (NONE SEEN)
[2019-05-05] MEDS ORDERED: LORAZEPAM 1 MG TABLET ONE (19:42)
[2019-05-05] MEDS ORDERED: CYCLOBENZAPRINE 10 MG TAB ONE (20:07)
[2019-05-05] MEDS ORDERED: HYDROCODONE/APAP 7.5/325 MG TAB ONE (20:07)
--- NOTE | 2019-05-05 20:31 | ER ---
Nurse's Notes [facility] Name: Fadumo Adams Age: 23 yrs Sex: Female : 1995 Arrival Date: 05/05/2019 Time: 18:06 Bed 19 Private MD: Diagnosis: Cervalgia;Cough Presentation: 05/05 18:06 Presenting complaint: Patient states: symptoms started 5 days ago with sv cough/congestion, went to urgent care 2 days ago and dx with ear infection and a virus. Today started having neck and left upper back pain, head pressure, dizziness. Transition of care: patient was not received from another setting of care. Onset of symptoms was May 05, 2019. Care prior to arrival: None. 18:06 Method Of Arrival: Ambulatory sv 18:06 Acuity: ESTUARDO 2 sv 18:23 Risk Assessment: Do you want to hurt yourself or someone else? Patient reports no ca1 desire to harm self or others. Initial Sepsis Screen: Does the patient meet any 2 criteria? No. Patient's initial sepsis screen is negative. Does the patient have a suspected source of infection? No. Patient's initial sepsis screen is negative. 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 Menses irregular ca1 Historical: - Allergies: 18:08 Demerol; sv 18:08 Iodinated Contrast Media - IV Dye; sv 18:08 Iodine; sv 18:08 PENICILLINS; sv 18:08 Shellfish Containing Products; sv 18:08 Wellbutrin; sv - PMHx: 18:08 Anxiety; Depression; Hypothyroidism; Kidney stones; Migraines; sv - Immunization history:: Adult Immunizations up to date, Flu vaccine is not up to date. - Social history:: Smoking status: Patient/guardian denies using tobacco. - Ebola Screening: : Patient negative for fever greater than or equal to 101.5 degrees Fahrenheit, and additional compatible Ebola Virus Disease symptoms Patient denies exposure to infectious person Patient denies travel to an Ebola-affected area in the 21 days before illness onset No symptoms or risks identified at this time. Screenin:17 Abuse screen: Denies threats or abuse. Denies injuries from another. Nutritional ca1 screening: No deficits noted. Tuberculosis screening: No symptoms or risk factors identified. Fall Risk None identified. Assessment: 18:17 General: Appears in no apparent distress. comfortable, Behavior is calm, cooperative, ca1 appropriate for age. Pain: Complains of pain in left scapular area, right scapular area and neck Pain does not radiate. Pain currently is 8 out of 10 on a pain scale. Quality of pain is described as sharp, Aggravated by repositioning, Noted to be crying. Neuro: Level of Consciousness is awake, alert, obeys commands, Oriented to person, place, time, situation, Appropriate for age Reports dizziness, headache. Cardiovascular: Heart tones S1 S2 present Capillary refill < 3 seconds Patient's skin is warm and dry. Respiratory: Airway is patent Respiratory effort is even, unlabored, Respiratory pattern is regular, symmetrical, Breath sounds are clear bilaterally. GI: Abdomen is round non-distended, Bowel sounds present X 4 quads. Abd is soft and non tender X 4 quads. Reports nausea, vomiting. : No signs and/or symptoms were reported regarding the genitourinary system. EENT: Tympanic membrane reddened on left ear Ear canal clear on left ear and right ear. Derm: Skin is intact, is healthy with good turgor, Skin is pink, warm \T\ dry. Musculoskeletal: Circulation, motion, and sensation intact. Capillary refill < 3 seconds. 18:59 Reassessment: Patient appears in no apparent distress at this time. Patient and/or iw family updated on plan of care and expected duration. Pain level reassessed. Patient is alert, oriented x 3, equal unlabored respirations, skin warm/dry/pink. lights dimmed, pt states pain resolves when she's lying still, no pain at this moment. 19:48 Reassessment: pt c/o feeling like her jaw is locking up, pt has hx of anxiety and is iw starting to feel anxious now, pt was on Klonopin in past, not on anxiety meds now, EMANI Garland notified, new order given , pt medicated with ativan 1 mg PO, pt still c/o pain to back of head/neck area 6/10, still feels uncomfortable,worse when she moves around. Vital Signs: 18:08 BP 146 / 104; Pulse 113; Resp 20; Temp 99.1; Pulse Ox 98% ; Weight 86.18 kg; Height 5 sv ft. 6 in. (167.64 cm); 18:57 BP 132 / 83; Pulse 100; Resp 16; Pulse Ox 100% on R/A; iw 19:14 BP 127 / 83; Pulse 85; Resp 16; Pulse Ox 100% on R/A; iw 19:50 BP 127 / 86; Pulse 87; Resp 16; Pulse Ox 100% on R/A; Pain 6/10; iw 18:08 Body Mass Index 30.67 (86.18 kg, 167.64 cm) sv ED Course: 18:06 Patient arrived in ED. sv 18:07 Dada Browning FNP-C is PHCP. la1 18:07 Armando Redman MD is Attending Physician. la1 18:08 Triage completed. sv 18:10 Noris Barakat, RN is Primary Nurse. ca1 18:15 Arm band placed on. ca1 18:17 Patient has correct armband on for positive identification. Placed in gown. Bed in low ca1 position. Call light in reach. Side rails up X 1. Pulse ox on. NIBP on. Warm blanket given. 18:17 No provider procedures requiring assistance completed. ca1 18:38 Initial lab(s) drawn, by id, sent to lab. Urine collected: clean catch specimen, clear, ca1 Amount Voided: 20mL Flu and/or RSV swab sent to lab. Inserted saline lock: 20 gauge in right antecubital area, using aseptic technique. Blood collected. 19:01 Primary Nurse role handed off by Noris Barakat, RN iw 19:01 Tomeka Shi, RN is Primary Nurse. iw 20:41 IV discontinued, intact, bleeding controlled, No redness/swelling at site. Pressure iw dressing applied. Administered Medications: 18:48 Drug: NS 0.9% 1000 ml Route: IV; Rate: 1 bolus; Site: right antecubital; ca1 18:50 Drug: TORadol - Ketorolac 15 mg Route: IVP; Site: right antecubital; ca1 20:08 Follow up: Response: No adverse reaction; Pain is unchanged, physician notified iw 19:47 Drug: Ativan 1 mg Route: PO; iw 20:08 Follow up: Response: No adverse reaction iw 20:07 Drug: [employer] (7.5 mg-325 mg) 1 tabs Route: PO; iw 20:15 Follow up: Response: No adverse reaction iw 20:08 Drug: Flexeril 10 mg Route: PO; iw 20:15 Follow up: Response: No adverse reaction iw Outcome: 20:30 Discharge ordered by . yoav 20:41 Discharged to home ambulatory. iw 20:41 Condition: good 20:41 Discharge instructions given to patient, family, Instructed on discharge instructions, follow up and referral plans. medication usage, Demonstrated understanding of instructions, follow-up care, medications, Prescriptions given X 2. 20:43 Patient left the ED. iw Signatures: Olesya Russell RN RN Tomeka Shi RN RN iw Dada Browning, DYER ASSISTANT-C DYER ASSISTANT-Cla1 Noris Barakat RN RN ca1 Corrections: (The following items were deleted from the chart) 18:08 18:06 Presenting complaint: Patient states: symptoms started 5 days ago with sv cough/congestion, went to urgent care 2 days ago and dx with ear infection and a virus. Today started having neck and left upper back pain. sv 18:09 18:06 Presenting complaint: Patient states: symptoms started 5 days ago with sv cough/congestion, went to urgent care 2 days ago and dx with ear infection and a virus. Today started having neck and left upper back pain, head pressure sv 18:09 18:06 Acuity: ESTUARDO 3 sv sv 18:59 18:57 BP 138 / 83; Pulse 100bpm; Resp 16bpm; Pulse Ox 100% RA; iw iw
--- NOTE | 2019-05-05 20:31 | EDPHYS ---
Physician Documentation [facility] Name: Fadumo Adams Age: 23 yrs Sex: Female : 1995 Arrival Date: 05/05/2019 Time: 18:06 Bed 19 Private MD: ED Physician Armando Redman HPI: 05/05 18:43 This 23 yrs old Female presents to ER via Ambulatory with complaints of la1 fever, neck pain. 18:43 The patient reports fever, not measured (subjective). Onset: The symptoms/episode la1 began/occurred 2 day(s) ago. Modifying factors: there are no obvious modifying factors. Associated signs and symptoms: Pertinent positives: nausea, vomiting, Pertinent negatives: abdominal pain, altered mental status, arthralgias, backache, chest pain, chills, cough, diarrhea, pulling at ears, earache, headache, hemoptysis, myalgias, night sweats, runny nose, sinus congestion. Severity of symptoms: At their worst the symptoms were moderate in the emergency department the symptoms have improved. The patient has not experienced similar symptoms in the past. pt reports she was ill a few days ago and dx with a viral illness and ear infection, placed on abx. Has been sleeping a lot and after waking up began having right inferior lateral neck pain. . 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 Menses irregular ca1 Historical: - Allergies: 18:08 Demerol; sv 18:08 Iodinated Contrast Media - IV Dye; sv 18:08 Iodine; sv 18:08 PENICILLINS; sv 18:08 Shellfish Containing Products; sv 18:08 Wellbutrin; sv - PMHx: 18:08 Anxiety; Depression; Hypothyroidism; Kidney stones; Migraines; sv - Immunization history:: Adult Immunizations up to date, Flu vaccine is not up to date. - Social history:: Smoking status: Patient/guardian denies using tobacco. - Ebola Screening: : Patient negative for fever greater than or equal to 101.5 degrees Fahrenheit, and additional compatible Ebola Virus Disease symptoms Patient denies exposure to infectious person Patient denies travel to an Ebola-affected area in the 21 days before illness onset No symptoms or risks identified at this time. ROS: 18:45 Neck: Negative for injury, pain, and swelling, Cardiovascular: Negative for chest pain, la1 palpitations, and edema, Respiratory: Negative for shortness of breath, cough, wheezing, and pleuritic chest pain, Abdomen/GI: Negative for abdominal pain, nausea, vomiting, diarrhea, and constipation, Back: Negative for injury and pain, : Negative for injury, bleeding, discharge, and swelling, MS/Extremity: Negative for injury and deformity, Skin: Negative for injury, rash, and discoloration, Neuro: Negative for headache, weakness, numbness, tingling, and seizure. 18:45 Constitutional: Positive for fever. 18:45 Eyes: Negative for acute changes, injury or acute deformity. 18:45 ENT: Negative for injury or acute deformity, ear pain, hearing loss, Teeth pain tinnitus, rhinorrhea, sinus congestion, sore throat. Exam: 18:46 Constitutional: This is a well developed, well nourished patient who is awake, alert, la1 and in no acute distress. Head/Face: Normocephalic, atraumatic. Eyes: Pupils equal round and reactive to light, extra-ocular motions intact. Periorbital areas with no swelling, redness, or edema. ENT: Nares patent. No nasal discharge, no septal abnormalities noted. Tympanic membranes are normal and external auditory canals are clear. Oropharynx with no redness, swelling, or masses, exudates, or evidence of obstruction, uvula midline. Mucous membranes moist. Neck: Trachea midline, and no cervical lymphadenopathy. Supple,pain with ROM to right to lateral neck without nuchal rigidity, or vertebral point tenderness. No Meningismus. Chest/axilla: Normal chest wall appearance and motion. Nontender with no deformity. No lesions are appreciated. Cardiovascular: Regular rate and rhythm with a normal S1 and S2. No gallops, murmurs, or rubs. Normal PMI, no JVD. No pulse deficits. Respiratory: Lungs have equal breath sounds bilaterally, clear to auscultation No rales, rhonchi or wheezes noted. No increased work of breathing, no retractions or nasal flaring. Abdomen/GI: Soft, non-tender, with normal bowel sounds. No distension or tympany. No guarding or rebound. No evidence of tenderness throughout. Skin: Warm, dry with normal turgor. Normal color with no rashes, no lesions, and no evidence of cellulitis. MS/ Extremity: Pulses equal, no cyanosis. Neurovascular intact. Full, normal range of motion. Vital Signs: 18:08 BP 146 / 104; Pulse 113; Resp 20; Temp 99.1; Pulse Ox 98% ; Weight 86.18 kg; Height 5 sv ft. 6 in. (167.64 cm); 18:57 BP 132 / 83; Pulse 100; Resp 16; Pulse Ox 100% on R/A; iw 19:14 BP 127 / 83; Pulse 85; Resp 16; Pulse Ox 100% on R/A; iw 19:50 BP 127 / 86; Pulse 87; Resp 16; Pulse Ox 100% on R/A; Pain 6/10; iw 18:08 Body Mass Index 30.67 (86.18 kg, 167.64 cm) sv MDM: 18:11 Patient medically screened. la1 20:25 Differential diagnosis: viral Infection, bacterial infection, URI, bronchitis, la1 pneumonia meningitis. Data reviewed: vital signs, nurses notes, lab test result(s), I have discussed the patient's presentation/case with the attending Emergency Department Physician; and as a result, I will discharge patient. Data interpreted: Pulse oximetry: on room air is 100 %. Interpretation: normal. Counseling: I had a detailed discussion with the patient and/or guardian regarding: the historical points, exam findings, and any diagnostic results supporting the discharge/admit diagnosis, lab results, the need to transfer to another facility. ED course: instructed pt to continue abx, pt appears non-toxic, pain with ROM looking to the right only. Otherwise neck is supple. 05/05 18:24 Order name: CBC with Diff; Complete Time: 19:16 05/05 18:24 Order name: BMP; Complete Time: 19:16 la05/05 18:24 Order name: Flu; Complete Time: 19:16 la05/05 18:24 Order name: Strep; Complete Time: 19:16 la05/05 18:38 Order name: Urine Microscopic Only; Complete Time: 19:59 bd 05/05 18:40 Order name: Urine Dipstick--Ancillary (enter results); Complete Time: 19:16 bd 05/05 18:50 Order name: Test, Serum; Complete Time: 19:59 ca1 05/05 19:05 Order name: Throat Culture EDMD 05/05 19:39 Order name: Urine Culture [facility] 05/05 18:24 Order name: SL; Complete Time: 18:48 [facility] 05/05 18:24 Order name: Urine Dipstick-Ancillary (obtain specimen); Complete Time: 18:48 [facility] 05/05 18:24 Order name: Urine Test (obtain specimen); Complete Time: 18:48 la1 Administered Medications: 18:48 Drug: NS 0.9% 1000 ml Route: IV; Rate: 1 bolus; Site: right antecubital; ca1 18:50 Drug: TORadol - Ketorolac 15 mg Route: IVP; Site: right antecubital; ca1 20:08 Follow up: Response: No adverse reaction; Pain is unchanged, physician notified iw 19:47 Drug: Ativan 1 mg Route: PO; iw 20:08 Follow up: Response: No adverse reaction iw 20:07 Drug: Williamson (7.5 mg-325 mg) 1 tabs Route: PO; iw 20:15 Follow up: Response: No adverse reaction iw 20:08 Drug: Flexeril 10 mg Route: PO; iw 20:15 Follow up: Response: No adverse reaction iw Disposition: 05/06 06:14 Co-signature as Attending Physician, Armando Redman MD I agree with the assessment and yefri plan of care. Disposition: 05/05/19 20:30 Discharged to Home. Impression: Cervalgia, Cough. - Condition is Stable. - Discharge Instructions: Muscle Pain, Adult, Neck Exercises. - Prescriptions for Medrol (Gilbert) 4 mg Oral Tablets, Dose Pack - take 1 tablet by ORAL route as directed - follow package instructions; 1 packet. Cyclobenzaprine 5 mg Oral Tablet - take 1 tablet by ORAL route 3 times per day As needed; 15 tablet. - Medication Reconciliation Form, Thank You Letter, Antibiotic Education, Work release form form. - Follow up: Private Physician; When: 2 - 3 days; Reason: Recheck today's complaints, Re-evaluation by your physician. - Problem is new. - Symptoms have improved. Signatures: Dispatcher [employer] Olesya Israel RN RN sv Anderson, Corey, MD MD cha Williams, Irene, RN RN iw Melaniea, Dada, SPINNER CAP FRAME-C SPINNER CAP FRAME-Cla1 Noris Barakat RN RN ca1 Corrections: (The following items were deleted from the chart) 05/05 20:43 20:30 05/05/2019 20:30 Discharged to Home. Impression: Cervalgia; Cough. Condition is iw Stable. Forms are Medication Reconciliation Form, Thank You Letter, Antibiotic Education, Prescription Opioid Use. Follow up: Private Physician; When: 2 - 3 days; Reason: Recheck today's complaints, Re-evaluation by your physician. Problem is new. Symptoms have improved. la1
[2019-05-05 23:27] VITALS: TEMP 99.1
[2019-05-05 23:28] VITALS: O2SAT 100
[2019-05-05 23:30] VITALS: BP 127/86
== END 2019-05-05 20:43 | disposition home or self-care (01) ==
LOC: ER 18:03
DX: M54.2 Cervicalgia (principal); R05 Cough; Z88.0 Allergy status to penicillin; Z91.09 Other allergy status, other than to drugs and biological substances; Z88.6 Allergy status to analgesic agent; Z91.013 Allergy to seafood
CPT/HCPCS: 87070; 87088; 85025; 87086; 80048; 36415; 84703; 87081; 87804 ×2; 96374; 99284; J7030; 81003; 81015

== ENCOUNTER 2021-08-29 02:01 | Emergency (ER) | payer BC ==
--- OUTSIDE RECORDS SUMMARY | 2021-08-29 02:05 | XMS REPORT | Continuity of Care Document ---
:1995 Author Organization [facility] t Address [address] [place] [address] Care Team Providers Name Role Phone Yoel Cruz Attending Clinician Unavailable Problems This patient has no known problems. Allergies, Adverse Reactions, Alerts This patient has no known allergies or adverse reactions. Medications This patient has no known medications. Procedures This patient has no known procedures. Encounters Start End Encounter Admission Attending Care Care Encounter Source Date/Time Date/Time Type Type Clinicians Facility Department ID 2021-06-01 Outpatient BRANDAN Cruz [facility] [id number] NPI:[id number] 11:22:03 John [id number] 2021-05-16 Outpatient BRANDAN Cruz [facility] [id number] NPI:[id number] 14:38:41 John [id number] 2021-05-16 Outpatient BRANDAN Cruz [facility] [id number] NPI:174 14:30:00 John [id number] 2021-05-16 Outpatient BRANDAN Crzu [facility] [id number] NPI:174 14:06:29 John [id number] 2021-05-16 Outpatient BRANDAN Cruz [facility] [id number] NPI:174 14:06:22 John [id number] 2021-05-16 Outpatient BRANDAN Cruz [facility] [id number] NPI:174 14:05:45 [facility] [id number] 2021-06-22 2021-06-22 ambulatory [facility] [id number] NPI:[id number] 00:00:00 00:00:00 [id number] 2021-06-18 2021-06-18 ambulatory [facility] [id number] NPI:[id number] 00:00:00 00:00:00 [id number] 2021-06-11 2021-06-11 ambulatory [facility] [id number] NPI:174 00:00:00 00:00:00 [id number] 2021-06-01 2021-06-01 ambulatory [facility] [id number] NPI:174 00:00:00 00:00:00 [id number] 2021-06-01 2021-06-01 ambulatory [facility] [id number] NPI:174 00:00:00 00:00:00 [id number] 2021-05-22 2021-05-22 ambulatory [facility] [id number] NPI:174 00:00:00 00:00:00 [id number] 2021-05-17 2021-05-17 ambulatory [facility] [id number] NPI:174 00:00:00 00:00:00 [id number] 2021-05-07 2021-05-07 ambulatory [facility] [id number] NPI:174 00:00:00 00:00:00 [id number] 2021-04-23 2021-04-23 ambulatory [facility] [id number] NPI:174 00:00:00 00:00:00 [id number] 2021-03-13 2021-03-13 ambulatory [facility] [id number] NPI:174 00:00:00 00:00:00 [id number] 2021-02-19 2021-02-19 ambulatory [facility] [id number] NPI:174 00:00:00 00:00:00 [id number] 2021-02-14 2021-02-14 Outpatient [facility] [id number] NPI:[id number] 00:00:00 00:00:00 [id number] Results This patient has no known results.
[2021-08-29 02:20] LABS: Urine Blood 3+ (Negative); Urine Glucose Negative (Negative); Urine Protein 2+ (Negative); Urine Specific Gravity >=1.030 (1.005-1.030)
[2021-08-29] MEDS ORDERED: ONDANSETRON 4 MG (ODT) TAB ONE (02:42)
[2021-08-29] MEDS ORDERED: HYDROCODONE/APAP 10/325 TAB ONE (02:43)
[2021-08-29 03:05] LABS: Absolute Lymphocytes (CBC) 3.2 K/uL (0.7-4.9); Hematocrit 40.7 % (36.0-45.0); MPV 7.8 fL (7.6-11.3); RBC Red Blood Cell Count 4.99 M/uL (3.86-4.86)
[2021-08-29 03:10] LABS: Potassium 4.1 mmol/L (3.5-5.1)
[2021-08-29] MEDS ORDERED: KETOROLAC 30 MG/ML INJ ONE (03:56)
[2021-08-29] MEDS ORDERED: TAMSULOSIN 0.4 MG SR CAP ONE (03:56)
[2021-08-29] MEDS ORDERED: MAGNESIUM SULFATE 1 gm IVPB 1 GM/100 ML BAG IV ONE (03:57)
--- NOTE | 2021-08-29 04:30 | EDPHYS ---
Physician Documentation [facility] Name: Fadumo Adams Age: 26 yrs Sex: Female : 1995 Arrival Date: 08/29/2021 Time: 02:04 Bed 17 Private MD: ED Physician Skinny Kay HPI: 08/29 03:44 This 26 yrs old Female presents to ER via Ambulatory with complaints of Flank Pain - rn Left, Nausea/Vomiting. 03:44 The patient complains of pain in the left low back. The pain radiates to the abdomen. rn Onset: The symptoms/episode began/occurred last night. Modifying factors: The symptoms are alleviated by nothing. the symptoms are aggravated by nothing. Associated signs and symptoms: Pertinent positives: dysuria, hematuria, nausea, vomiting, Pertinent negatives: fever. Severity of pain: At its worst the pain was moderate in the emergency department the pain is unchanged. The patient has experienced similar episodes in the past. The patient has not recently seen a physician. Similar to previous kidney stones in past. . 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 - Social history:: Smoking status: Patient denies any tobacco usage or history of. - Family history:: not pertinent. - Hospitalizations: : No recent hospitalization is reported. ROS: 03:44 Constitutional: Negative for fever, chills, and weight loss, Eyes: Negative for injury, rn pain, redness, and discharge, Neck: Negative for injury, pain, and swelling, Cardiovascular: Negative for chest pain, palpitations, and edema, Respiratory: Negative for shortness of breath, cough, wheezing, and pleuritic chest pain, Abdomen/GI: + left flank and lower abd pain Back: Negative for injury : + dysuria MS/Extremity: Negative for injury and deformity, Skin: Negative for injury, rash, and discoloration, Neuro: Negative for headache, weakness, numbness, tingling, and seizure. Exam: 03:44 Constitutional: This is a well developed, well nourished patient who is awake, alert, rn appears uncomfortable Head/Face: Normocephalic, atraumatic. Cardiovascular: Regular rate and rhythm. No pulse deficits. Respiratory: No increased work of breathing, no retractions or nasal flaring. Abdomen/GI: Soft, non-tender Back: No spinal tenderness. No costovertebral tenderness. Full range of motion. Skin: Warm, dry MS/ Extremity: Pulses equal, no cyanosis. Neuro: Awake and alert, GCS 15 Vital Signs: 02:10 BP 147 / 108; Pulse 87; Resp 18; Temp 98.4(O); Pulse Ox 98% on R/A; Weight 86.18 kg lp1 (R); Height 5 ft. 6 in. (167.64 cm); Pain 10/10; 02:15 BP 146 / 95; Pulse 93; Resp 16 S; Pulse Ox 100% on R/A; Pain 8/10; ag7 03:20 Pain 5/10; ag7 06:00 BP 128 / 88; Pulse 72; Resp 16 S; Pulse Ox 99% on R/A; Pain 5/10; ag7 02:10 Body Mass Index 30.67 (86.18 kg, 167.64 cm) lp1 MDM: 02:11 Patient medically screened. rn 02:22 ED course: Pt refuses IV medication, states had a bad reaction or experience in past, rn requests oral medication.. 04:28 Differential diagnosis: nephrolithiasis, UTI. 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 Counseling: I had a detailed discussion with the patient and/or guardian regarding: the historical points, exam findings, and any diagnostic results supporting the discharge/admit diagnosis, lab results, radiology results, the need for outpatient follow up, to return to the emergency department if symptoms worsen or persist or if there are any questions or concerns that arise at home. Response to treatment: the patient's symptoms have markedly improved after treatment, and as a result, I will discharge patient. Special discussion: I discussed with the patient/guardian in detail that at this point there is no indication for admission to the hospital. It is understood, however, that if the symptoms persist or worsen the patient needs to return immediately for re-evaluation. ED course: Pt markedly improved, laying comfortably, smiling, laughing now, pain minimal. Will dc home as likely passed into bladder now. Return precautions given and understood.. 08/29 02:12 Order name: CBC with Diff; Complete Time: 03:35 rn 08/29 02:12 Order name: Basic Metabolic Panel; Complete Time: 03:35 rn 08/29 02:12 Order name: CT Stone Protocol rn 08/29 02:20 Order name: Urine Dipstick-Ancillary; Complete Time: 02:22 EDMS 08/29 02:12 Order name: IV Start; Complete Time: 04:09 rn 08/29 02:12 Order name: Urine Dipstick-Ancillary (obtain specimen); Complete Time: 02:20 rn 08/29 02:12 Order name: Urine Test (obtain specimen); Complete Time: 02:20 rn Administered Medications: 02:46 Drug: Ondansetron 4 mg Route: PO; ag7 03:20 Follow up: Response: No adverse reaction; Pain is decreased ag7 02:46 Drug: Roxana (HYDROcodone-acetaminophen) 10 mg-325 mg 1 tabs {Note: RASS 0.} Route: PO; ag7 03:20 Follow up: Pain 5/10 Adult; Response: No adverse reaction; Pain is decreased ag7 04:05 Drug: Ketorolac 30 mg Route: IVP; Site: right antecubital; nestor 04:40 Follow up: Response: No adverse reaction ag7 04:05 Drug: Magnesium Sulfate 1 grams Route: IVPB; Infused Over: 1 hrs; Site: right nestor antecubital; 06:19 Follow up: Response: No adverse reaction; IV Status: Completed infusion; IV Intake: ag7 100ml 04:06 Drug: Flomax (tamsulosin) 0.4 mg Route: PO; nestor 04:40 Follow up: Response: No adverse reaction ag7 Disposition Summary: 08/29/21 04:29 Discharge Ordered Location: Home rn Problem: new rn Symptoms: have improved rn Condition: Stable rn Diagnosis - Calculus of ureter rn Followup: rn - With: Private Physician - When: As needed - Reason: Recheck today's complaints, Re-evaluation by your physician Discharge Instructions: - Discharge Summary Sheet rn - Kidney Stones rn - Renal Colic rn - Dietary Guidelines to Help Prevent Kidney Stones rn Forms: - Work release form bb - Family Work Release bb - Medication Reconciliation Form rn - Thank You Letter rn - 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
--- NOTE | 2021-08-29 04:30 | ER ---
Nurse's Notes [facility] Name: Fadumo Adams Age: 26 yrs Sex: Female : 1995 Arrival Date: 08/29/2021 Time: 02:04 Bed 17 Private MD: Diagnosis: Calculus of ureter Presentation: 08/29 02:08 Chief complaint: Patient states: "A few hours ago, I started having excruciating pain lp1 to my back left side"; Reports pain to left flank, burning with urination, urinary frequency with nausea and vomiting. Coronavirus screen: At this time, the client does not indicate any symptoms associated with coronavirus-19. Ebola Screen: No symptoms or risks identified at this time. Risk Assessment: Do you want to hurt yourself or someone else? Patient reports no desire to harm self or others. Onset of symptoms was August 29, 2021. 02:08 Method Of Arrival: Ambulatory lp1 02:08 Acuity: ESTUARDO 3 lp1 02:10 Initial Sepsis Screen: Does the patient meet any 2 criteria? No. Patient's initial lp1 sepsis screen is negative. Does the patient have a suspected source of infection? No. Patient's initial sepsis screen is negative. 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 - Social history:: Smoking status: Patient denies any tobacco usage or history of. - Family history:: not pertinent. - Hospitalizations: : No recent hospitalization is reported. Screenin:28 Abuse screen: Denies threats or abuse. Nutritional screening: No deficits noted. ag7 Tuberculosis screening: No symptoms or risk factors identified. Fall Risk No fall in past 12 months (0 pts). No secondary diagnosis (0 pts). No IV (0 pts). Ambulatory Aid- None/Bed Rest/Nurse Assist (0 pts). Gait- Normal/Bed Rest/Wheelchair (0 pts) Mental Status- Oriented to own ability (0 pts). Total Traore Fall Scale indicates No Risk (0-24 pts). Assessment: 02:19 General: Appears in no apparent distress. Behavior is calm, cooperative, appropriate ag7 for age. Pain: Complains of pain in back LEFT FLANK Pain does not radiate. Pain currently is 9 out of 10 on a pain scale. Neuro: Level of Consciousness is awake, alert, obeys commands, Oriented to Appropriate for age. Cardiovascular: Heart tones S1 S2 present Patient's skin is warm and dry. Respiratory: Airway is patent Trachea midline Respiratory effort is even, unlabored, Respiratory pattern is regular, symmetrical. GI: Abdomen is obese, Bowel sounds Last bowel movement 5/10 Reports nausea, vomiting. 03:26 Reassessment: No changes from previously documented assessment. Patient and/or family ag7 updated on plan of care and expected duration. Pain level reassessed. Patient is alert, oriented x 3, equal unlabored respirations, skin warm/dry/pink. 03:29 GI:. ag7 03:30 Reassessment: Patient refusing IV access at this time MD Kay aware. ag7 Vital Signs: 02:10 BP 147 / 108; Pulse 87; Resp 18; Temp 98.4(O); Pulse Ox 98% on R/A; Weight 86.18 kg lp1 (R); Height 5 ft. 6 in. (167.64 cm); Pain 10/10; 02:15 BP 146 / 95; Pulse 93; Resp 16 S; Pulse Ox 100% on R/A; Pain 8/10; ag7 03:20 Pain 5/10; ag7 06:00 BP 128 / 88; Pulse 72; Resp 16 S; Pulse Ox 99% on R/A; Pain 5/10; ag7 02:10 Body Mass Index 30.67 (86.18 kg, 167.64 cm) lp1 ED Course: 02:04 Patient arrived in ED. kz 02:08 Arm band placed on left wrist. lp1 02:09 Triage completed. lp1 02:11 Skinny Kay MD is Attending Physician. rn 02:19 Lazara Watt, RN is Primary Nurse. ag7 02:40 CT Stone Protocol In Process Unspecified. EDMS 03:28 Patient has correct armband on for positive identification. Bed in low position. Call ag7 light in reach. Side rails up X 1. Adult w/ patient. 03:29 No provider procedures requiring assistance completed. ag7 06:21 IV discontinued, intact, bleeding controlled, No redness/swelling at site. Pressure ag7 dressing applied. Administered Medications: 02:46 Drug: Ondansetron 4 mg Route: PO; ag7 03:20 Follow up: Response: No adverse reaction; Pain is decreased ag7 02:46 Drug: [place] (HYDROcodone-acetaminophen) 10 mg-325 mg 1 tabs {Note: RASS 0.} Route: PO; ag7 03:20 Follow up: Pain 5/10 Adult; Response: No adverse reaction; Pain is decreased ag7 04:05 Drug: Ketorolac 30 mg Route: IVP; Site: right antecubital; nestor 04:40 Follow up: Response: No adverse reaction ag7 04:05 Drug: Magnesium Sulfate 1 grams Route: IVPB; Infused Over: 1 hrs; Site: right nestor antecubital; 06:19 Follow up: Response: No adverse reaction; IV Status: Completed infusion; IV Intake: ag7 100ml 04:06 Drug: Flomax (tamsulosin) 0.4 mg Route: PO; nestor 04:40 Follow up: Response: No adverse reaction ag7 Intake: 06:19 IV: 100ml; Total: 100ml. ag7 Outcome: 04:29 Discharge ordered by . rn 06:20 Discharged to home ambulatory. ag7 06:20 Condition: stable 06:20 Discharge instructions given to patient, Instructed on discharge instructions, follow up and referral plans. Demonstrated understanding of instructions, follow-up care. 06:21 Patient left the ED. ag7 Signatures: Dispatcher [employer] EDKY Skinny Kay MD MD rn Pena, Laura, RN RN lp1 Shayna White RN RN bo Zapata, Kelly kz Glenn, Angela, ИРИНА RN ag7 Corrections: (The following items were deleted from the chart) 03:30 02:19 General: Appears in no apparent distress. Behavior is calm, cooperative, ag7 appropriate for age, ag7 03:30 02:19 Pain: Complains of pain in back LEFT FLANK Pain does not radiate. Pain currently ag7 is 9 out of 10 on a pain scale. ag7 03:30 02:19 Neuro: Level of Consciousness is awake, alert, obeys commands, Oriented to ag7 Appropriate for age ag7
[2021-08-29 06:29] VITALS: TEMP 98.4
[2021-08-29 06:33] VITALS: BP 128/88; O2SAT 99
--- NOTE | 2021-08-29 11:18 | RAD REPORT ---
EXAM DESCRIPTION: Stone Protocol 08/29/2021 2:50 AM CDT CLINICAL HISTORY: 26 years, Female, Flank pain, kidney stone suspected COMPARISON: None. TECHNIQUE: Multiple transaxial tomograms of the abdomen and pelvis were performed from the lung base s to the symphysis pubis 3 mm slice thickness at 3 mm interval reconstruction, without administration of IV and oral contrast. Multiplanar reformats in the sagittal and coronal plane were generated and reviewed. This exam was performed according to our departmental dose-optimization protocol, which includes auto mated exposure control, adjustment of the mA and/or kV according to patient size and/or use of iterat moreno reconstruction technique. FINDINGS: The lack of IV and oral contrast limits evaluation of solid organs, subtle lesions cannot be excluded. The lung bases demonstrate to be clear. Grossly the unopacified liver, gallbladder, pancreas, spleen and adrenal glands demonstrate to be wit hin normal limits, no significant focal lesions were identified. The right kidney demonstrated presence of minimal high density material within the calyceal system mo st likely corresponding to early stone formation. The left kidney demonstrate mild left hydronephrosis and mild left hydroureter extending down to clos e proximity to the left UVJ where there is a probable 2.5 x 1.9 mm calculus on axial image 141 and co mayra image 58. There is small calculus lower pole measuring 2.5 mm on image 66. Grossly the unopacified stomach, small bowel and large bowel demonstrate to be within normal limits. There is no evidence for bowel dilatation/or free air. The appendix is normal. The urinary bladder demonstrate to be within normal limits. The uterus demonstrate to be within gabi l limits. There are normal bilateral adnexal structures. The aorta demonstrate to be within normal li mits. There is no retroperitoneal lymphadenopathy. There is no evidence for ascites. The rest of the soft tissue demonstrate to be grossly unremarkable. IMPRESSION: Mild left hydronephrosis and mild left hydroureter extending down to close proximity to the left UVJ where there is a probable 2.5 x 1.9 mm calculus. Small calculus lower pole measuring 2.5 mm. Minimal high density material within the right calyceal system corresponding to early stone formation . Electronically signed by: Abraham Canales MD 08/29/2021 2:54 AM CDT Due to temporary technical issues with the PACS/Fluency reporting system, reports are being signed by the in house radiologist without review as a courtesy to ensure prompt reporting. The interpreting r adiologist is fully responsible for the content of the report.
== END 2021-08-29 06:21 | disposition home or self-care (01) ==
LOC: ER 02:01
DX: N20.1 Calculus of ureter (principal); Z87.442 Personal history of urinary calculi; E03.9 Hypothyroidism, unspecified; F41.8 Other specified anxiety disorders; Z88.5 Allergy status to narcotic agent; Z91.013 Allergy to seafood; Z91.041 Radiographic dye allergy status
CPT/HCPCS: 96365; 85025; 80048; 36415; 81003; 76377; 74176; 96375; 99283; 96366; J3475

== ENCOUNTER 2022-09-01 08:54 | Emergency (ER) | payer BC ==
--- OUTSIDE RECORDS SUMMARY | 2022-09-01 09:01 | XMS REPORT | Continuity of Care Document ---
:1995 Author Organization [facility] t Address [address] [place] [address] Care Team Providers Name Role Phone John Cruz Attending Clinician Unavailable Payers Payer Name Policy Type Policy Number Effective Date Expiration Date S ourangie [employer] 6 [id number] 2021 Common Spir it [employer] of 20 00:00:00 - [facility] Problems Condition Condition Condition Status Onset Resolution Last Treating Co mments Source Name Details Category Date Date Treatment Clinician Date [id number] Chronic Problem Active Common fatigue, Spirit unspecifie - [facility] [id number] Depression Problem Active Com mon , major, Spirit single - [facility] episode, [facility] [id number] GERD Problem Active Common without Spirit esophagiti - [facility] [id number] Primary Problem Active Common insomnia [facility] [id number] Thyroid Problem Active Commo n nodule Spirit - [facility] [id number] Hypothyroi Problem Active Co mmon dism Spirit (acquired) - [facility] [id number] CEM Problem Active Common (generaliz Spirit ed anxiety - [facility]I disorder) [facility] [id number] Panic Problem Active Common attacks Spirit - [facility] [id number] PTSD Problem Active Common (post-trau Spirit matic - [facility] stress St disorder) [facility] [id number] PCOS Problem Active Common (polycysti Spirit c ovarian - [facility]I syndrome) [facility] Allergies, Adverse Reactions, Alerts Allergy Allergy Status Severity Reaction(s) Onset Inactive Treating Comm ents Source Name Type Date Date Clinician 463 Drug Active Unknown Common allergy [facility] [address] Drug Active Unknown Common allergy [facility] amoxicil amoxicil Active Throat Common yesi yesi swelling [facility] penicill penicill Active Throat Common in V in V swelling [facility] Social History Social Habit Start Date Stop Date Quantity Comments Source History of Tobacco Use Co mmon [facility] Sex Assigned At Com mon [facility] Smoking Status Start Date Stop Date Source Former Smoker 2021-06-15 00:00:00 2021-06-15 00:00:[facility] Ordered Filled Start Stop Current Ordering Indication Dosage Frequency Signature Comments Components Source Medication Medication Date Date Medication? Clinician (SIG) Name Name clonazePAM clonazePAM No 1{table clonazePAM 1 MG 1 MG 2-11 t} 1 MG 00:00: 00 clonazePAM clonazePAM 0 No 1{table clonazePAM 1 MG 1 MG 2-11 t} 1 MG 00:00: 00 clonazePAM clonazePAM 0 No 1{table clonazePAM 1 MG 1 MG 2-11 t} 1 MG 00:00: 00 PROzac 20 PROzac 20 2021-0 No 1{capsu QD MG MG 1-27 le} 00:00: 00 PROzac 20 PROzac 20 2021-0 No 1{capsu QD MG MG 1-27 le} 00:00: 00 PROzac 20 PROzac 20 2021-0 No 1{capsu QD PROzac 20 MG MG 1-27 le} MG 00:00: 00 PROzac 20 PROzac 20 2021-0 No 1{capsu QD PROzac 20 MG MG 1-27 le} MG 00:00: 00 PROzac 20 PROzac 20 2021-0 No 1{capsu QD PROzac 20 MG MG 1-27 le} MG 00:00: 00 PROzac 20 PROzac 20 0 No 1{capsu QD PROzac 20 MG MG 1-27 le} MG 00:00: 00 PROzac 20 PROzac 20 2-0 No 1{capsu QD PROzac 20 MG MG 1-27 le} MG 00:00: 00 metFORMIN metFORMIN 2-0 No 1{table BID HCl 500 MG HCl 500 MG 1-21 t_with_ 00:00: a_meal} 00 metFORMIN metFORMIN 2-0 No 1{table BID HCl 500 MG HCl 500 MG 1-21 t_with_ 00:00: a_meal} 00 metFORMIN metFORMIN 2-0 No 1{table BID metFORMIN HCl 500 MG HCl 500 MG 1-21 t_with_ HCl 500 MG 00:00: a_meal} 00 metFORMIN metFORMIN 2-0 No 1{table BID metFORMIN HCl 500 MG HCl 500 MG 1-21 t_with_ HCl 500 MG 00:00: a_meal} 00 metFORMIN metFORMIN 2-0 No 1{table BID metFORMIN HCl 500 MG HCl 500 MG 1-21 t_with_ HCl 500 MG 00:00: a_meal} 00 metFORMIN metFORMIN 2-0 No 1{table BID metFORMIN HCl 500 MG HCl 500 MG 1-21 t_with_ HCl 500 MG 00:00: a_meal} 00 metFORMIN metFORMIN 2-0 No 1{table BID metFORMIN HCl 500 MG HCl 500 MG 1-21 t_with_ HCl 500 MG 00:00: a_meal} 00 metFORMIN metFORMIN 2-0 No 1{table BID metFORMIN HCl 500 MG HCl 500 MG -21 t_with_ HCl 500 MG 00:00: a_meal} 00 clonazePAM clonazePAM 2-0 No 1{table clonazePAM 0.5 MG 0.5 MG 1-03 t} 0.5 MG 00:00: 00 Makinen Makinen 2-0 No 1{table QD Makinen Thyroid 30 Thyroid 30 1-03 t_on_an Thyroid 30 MG MG 00:00: _empty_ MG 00 stomach } clonazePAM clonazePAM 2-0 No 1{table 0.5 MG 0.5 MG 1-03 t} 00:00: 00 Makinen Makinen 2-0 No 1{table QD Thyroid 30 Thyroid 30 1-03 t_on_an MG MG 00:00: _empty_ 00 stomach } clonazePAM clonazePAM 2021-0 No 1{table 0.5 MG 0.5 MG 04-23 t} 00:00: 00 Makinen Makinen No 1{table QD Thyroid 30 Thyroid 30 -03 t_on_an MG MG 00:00: _empty_ 00 stomach } Makinen Makinen No 1{table QD Makinen Thyroid 30 Thyroid 30 -03 t_on_an Thyroid 30 MG MG 00:00: _empty_ MG 00 stomach } clonazePAM clonazePAM No 1{table clonazePAM 0.5 MG 0.5 MG 04-23 t} 0.5 MG 00:00: 00 Spironolact Spironolact 2021- No QD Spironolac one 25 MG one 25 MG 04-23 tone 25 MG 00:00: 00:00 00 :00 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 No 1{table QD 30 MG 30 MG t_on_an _empty_ stomach } 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 No 1{table QD 30 MG 30 MG t_on_an _empty_ stomach } FLUoxetine FLUoxetine No 1{table TID FLUoxetine HCl 20 MG HCl 20 MG t} HCl 20 MG Makinen Makinen No 1{table QD Makinen Thyroid 30 Thyroid 30 t_on_an Thyroid 30 MG MG _empty_ MG stomach } Spironolact Spironolact No QD Spironolac one 25 MG one 25 MG tone 25 MG 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 No 1{table QD 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 30 MG 30 MG t_on_an 30 MG _empty_ stomach } FLUoxetine FLUoxetine No 1{table TID FLUoxetine HCl 20 MG HCl 20 MG t} HCl 20 MG Makinen Makinen No 1{table QD Makinen Thyroid 30 Thyroid 30 t_on_an Thyroid 30 MG MG _empty_ MG stomach } Spironolact Spironolact No QD Spironolac one 25 MG one 25 MG tone 25 MG 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 No 1{table QD 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 30 MG 30 MG t_on_an 30 MG _empty_ stomach } FLUoxetine FLUoxetine No 1{table TID FLUoxetine HCl 20 MG HCl 20 MG t} HCl 20 MG Makinen Makinen No 1{table QD Makinen Thyroid 30 Thyroid 30 t_on_an Thyroid 30 MG MG _empty_ MG stomach } Spironolact Spironolact No QD Spironolac one 25 MG one 25 MG tone 25 MG 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 No 1{table QD 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 30 MG 30 MG t_on_an 30 MG _empty_ stomach } FLUoxetine FLUoxetine No 1{table TID FLUoxetine HCl 20 MG HCl 20 MG t} HCl 20 MG 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 No 1{table QD 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 30 MG 30 MG t_on_an 30 MG _empty_ stomach } clonazePAM clonazePAM No 1{table clonazePAM 1 MG 1 MG t} 1 MG Makinen Makinen No 1{table QD Makinen Thyroid 30 Thyroid 30 t_on_an Thyroid 30 MG MG _empty_ MG stomach } Spironolact Spironolact No QD Spironolac one 25 MG one 25 MG tone 25 MG FLUoxetine FLUoxetine No 1{table TID FLUoxetine HCl 20 MG HCl 20 MG t} HCl 20 MG 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 No 1{table QD 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 30 MG 30 MG t_on_an 30 MG _empty_ stomach } clonazePAM clonazePAM No 1{table clonazePAM 1 MG 1 MG t} 1 MG Makinen Makinen No 1{table QD Makinen Thyroid 30 Thyroid 30 t_on_an Thyroid 30 MG MG _empty_ MG stomach } Spironolact Spironolact No QD Spironolac one 25 MG one 25 MG tone 25 MG 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 No 1{table QD 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 30 MG 30 MG t_on_an 30 MG _empty_ stomach } clonazePAM clonazePAM No 1{table QD clonazePAM 1 MG 1 MG t} 1 MG FLUoxetine FLUoxetine No 1{table QD FLUoxetine HCl 20 MG HCl 20 MG t} HCl 20 MG 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 No 1{table QD 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 30 MG 30 MG t_on_an 30 MG _empty_ stomach } clonazePAM clonazePAM No 1{table QD clonazePAM 1 MG 1 MG t} 1 MG FLUoxetine FLUoxetine No 1{table QD FLUoxetine HCl 20 MG HCl 20 MG t} HCl 20 MG clonazePAM clonazePAM No 1{table QD clonazePAM 1 MG 1 MG t} 1 MG FLUoxetine FLUoxetine No 1{table QD FLUoxetine HCl 20 MG HCl 20 MG t} HCl 20 MG 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 No 1{table QD 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 30 MG 30 MG t_on_an 30 MG _empty_ stomach } FLUoxetine FLUoxetine No 1{table QD FLUoxetine HCl 40 MG HCl 40 MG t} HCl 40 MG 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 No 1{table QD 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 30 MG 30 MG t_on_an 30 MG _empty_ stomach } 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 No 1{table QD 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 30 MG 30 MG t_on_an 30 MG _empty_ stomach } FLUoxetine FLUoxetine No 1{table QD FLUoxetine HCl 40 MG HCl 40 MG t} HCl 40 MG Vital Signs Vital Name Observation Time Observation Value Comments Source height 2021-06-01 11:30:00 66 [in_i] [facility] weight 2021-06-01 11:30:00 195 [lb_av] Common [facility] temperature 2021-06-01 11:30:00 98 [degF] [facility] bmi 2021-06-01 11:30:00 31.47 kg/m2 [facility] blood pressure 2021-06-01 11:30:00 132 mm[Hg] Common [facility] - systolic [facility] blood pressure 2021-06-01 11:30:00 76 mm[Hg] Common [facility] - diastolic [facility] height 2021-04-23 10:20:00 66 [in_i] [facility] weight 2021-04-23 10:20:00 193.8 [lb_av] [facility] temperature 2021-04-23 10:20:00 98.1 [degF] [facility] bmi 2021-04-23 10:20:00 31.28 kg/m2 [facility] oximetry 2021-04-23 10:20:00 99 % [facility] respiratory rate 2021-04-23 10:20:00 18 /min Comm on [facility] blood pressure 2021-04-23 10:20:00 124 mm[Hg] Common [facility] - systolic [facility] blood pressure 2021-04-23 10:20:00 75 mm[Hg] Common [facility] - diastolic [facility] height 2021-02-14 14:40:00 66 [in_i] [facility] weight 2021-02-14 14:40:00 200.3 [lb_av] Common [facility] temperature 2021-02-14 14:40:00 98.1 [degF] [facility] bmi 2021-02-14 14:40:00 32.33 kg/m2 [facility] oximetry 2021-02-14 14:40:00 99 % [facility] respiratory rate 2021-02-14 14:40:00 18 /min Comm on [facility] blood pressure 2021-02-14 14:40:00 130 mm[Hg] Common [facility] systolic [facility] blood pressure 2021-02-14 14:40:00 86 mm[Hg] Common [facility] diastolic [facility] Procedures This patient has no known procedures. Encounters Start End Encounter Admission Attending Care Care Encounter Source Date/Time Date/Time Type Type Clinicians Facility Department ID 2021-06-01 Outpatient Cruz, STLMLC STLMLC [id number] Common 11:22:03 John [facility] 2021-05-16 Outpatient Cruz, STLMLC STLMLC [id number] Common 14:38:41 John [facility] 2021-05-16 Outpatient Cruz, STLMLC STLMLC [id number] Common 14:30:00 John [facility] 2021-05-16 Outpatient Cruz, STLMLC STLMLC [id number] Common 14:06:29 John [id number] [facility] 2021-05-16 Outpatient Cruz, STLMLC STLMLC [id number] Common 14:06:22 John [address] [facility] 2021-05-16 Outpatient Cruz, STLMLC STLMLC [id number] Common 14:05:45 John [address] [facility] 2021-06-22 2021-06-22 (TEL) STLMLC STLMLC [id number] Co mmon 00:00:00 00:00:00 [facility] 2021-06-18 2021-06-18 (TEL) STLMLC STLMLC [id number] Co mmon 00:00:00 00:00:00 [facility] 2021-06-11 2021-06-11 (TEL) STLMLC STLMLC [id number] Co mmon 00:00:00 00:00:00 [facility] 2021-06-01 2021-06-01 OFFICE STLMLC STLMLC [id number] Co mmon 00:00:00 00:00:00 VISIT [facility] PT - CHI LEVEL 4 [facility] 2021-06-01 2021-06-01 (TEL) STLMLC STLMLC [id number] Co mmon 00:00:00 00:00:00 [facility] 2021-05-22 2021-05-22 (TEL) STLMLC STLMLC [id number] Co mmon 00:00:00 00:00:00 [facility] 2021-05-17 2021-05-17 (TEL) STLMLC STLMLC [id number] Co mmon 00:00:00 00:00:00 [facility] 2021-05-07 2021-05-07 (TEL) STLMLC STLMLC [id number] Co mmon 00:00:00 00:00:00 [facility] 2021-04-23 2021-04-23 OFFICE STLMLC STLMLC [id number] Co mmon 00:00:00 00:00:00 VISIT [facility] PT - CHI LEVEL 4 [facility] 2021-03-13 2021-03-13 (TEL) STLMLC STLMLC [id number] Co mmon 00:00:00 00:00:00 [facility] 2021-02-19 2021-02-19 (TEL) STLMLC STLMLC [id number] Co mmon 00:00:00 00:00:00 [facility] 2021-02-14 2021-02-14 OFFICE STLMLC STLMLC [id number] Co mmon 00:00:00 00:00:00 VISIT [facility] PT LEVEL 3 [facility] Results This patient has no known results.
[2022-09-01 09:45] LABS: Absolute Lymphocytes (CBC) 4.3 K/uL (0.7-4.9); Hematocrit 38.8 % (36.0-45.0); Lymphocytes % 51.4 % (15.3-44.8); MPV 8.6 fL (7.6-11.3); RBC Red Blood Cell Count 4.57 M/uL (3.86-4.86)
[2022-09-01 09:46] LABS: Specific Gravity 1.011 (1.005-1.030); Urine Bacteria <20 /HPF (<20); Urine Bilirubin NEGATIVE (Negative); Urine Blood Negative (Negative); Urine Clarity Clear (Clear); Urine Color Light-Yellow (Yellow); Urine Glucose NEGATIVE (Negative); Urine Mucus Slight /HPF (None Seen); Urine Protein NEGATIVE (Negative); Urine RBC <5 /HPF (None Seen); Urine Urobilinogen Normal (Normal)
[2022-09-01 10:00] LABS: Magnesium 2.1 mg/dL (1.6-2.4); Potassium 3.6 mEq/L (3.5-5.1); Troponin High Sensitivity 3.9 pg/mL (<58.9)
[2022-09-01 10:38] LABS: Blood Morphology Comment NOT SEEN (NOT SEEN); Platelet Estimate ADEQ
--- NOTE | 2022-09-01 10:51 | ER ---
Nurse's Notes [facility] Name: Fadumo Adams Age: 27 yrs Sex: Female : 1995 Arrival Date: 09/01/2022 Time: 08:54 Bed 15 Private MD: Diagnosis: Chest pain, unspecified Presentation: 09/01 09:01 Chief complaint: Intermittent sharp left sided chest pain that radiates to back x 2 hb weeks. Coronavirus screen: At this time, the client does not indicate any symptoms associated with coronavirus-19. Ebola Screen: No symptoms or risks identified at this time. Initial Sepsis Screen: Does the patient meet any 2 criteria? No. Patient's initial sepsis screen is negative. Does the patient have a suspected source of infection? No. Patient's initial sepsis screen is negative. Risk Assessment: Do you want to hurt yourself or someone else? Patient reports no desire to harm self or others. Onset of symptoms was August 2022. 09:01 Method Of Arrival: Ambulatory hb 09:01 Acuity: ESTUARDO 3 hb Historical: - Allergies: 09:02 Demerol; hb 09:02 Iodinated Contrast Media - IV Dye; hb 09:02 Iodine; hb 09:02 PENICILLINS; hb 09:02 Shellfish Containing Products; hb 09:02 Wellbutrin; hb - Home Meds: 09:02 [place] Thyroid Oral [Active]; Fluoxetine Oral [Active]; Klonopin 1 mg Oral tab [Active];hb - PMHx: 09:02 Anxiety; Depression; Hypothyroidism; Kidney stones; Migraines; hb - Immunization history:: Adult Immunizations up to date. - Social history:: Smoking status: Patient denies any tobacco usage or history of. Screenin:08 [facility] ED Fall Risk Assessment (Adult) History of falling in the last 3 months, kc6 including since admission No falls in past 3 months (0 pts) Confusion or Disorientation No (0 pts) Intoxicated or Sedated No (0 pts) Impaired Gait No (0 pts) Mobility Assist Device Used No (0 pt) Altered Elimination No (0 pt) Score/Fall Risk Level 0 - 2 = Low Risk Oriented to surroundings, Maintained a safe environment, Educated pt \T\ family on fall prevention, incl call for assistance when getting out of bed, Assessed \T\ reinforced patient's understanding of fall precautions, Hourly rounding (assess needs \T\ fall precautionary measures) done. Abuse screen: Denies threats or abuse. Denies injuries from another. Nutritional screening: No deficits noted. Tuberculosis screening: No symptoms or risk factors identified. Assessment: 09:08 General: Appears in no apparent distress. comfortable, Behavior is calm, cooperative, kc6 appropriate for age. Pain: Denies pain. Pain does not radiate. Pain currently is 0 out of 10 on a pain scale. at worst was 7 out of 10 on a pain scale. Pain began 1 hour ago. Neuro: Barnes Agitation-Sedation Scale (RASS): 0 - Alert and Calm Level of Consciousness is awake, alert, obeys commands, Oriented to person, place, time, situation, Appropriate for age. Cardiovascular: Heart tones S1 S2 present Capillary refill < 3 seconds Rhythm is sinus rhythm. Respiratory: Airway is patent Trachea midline Respiratory effort is even, unlabored, Respiratory pattern is regular, symmetrical. GI: Reports nausea, vomiting, Patient currently denies diarrhea. : No signs and/or symptoms were reported regarding the genitourinary system. EENT: No signs and/or symptoms were reported regarding the EENT system. Derm: No signs and/or symptoms reported regarding the dermatologic system. Skin is intact, Skin is pink, warm \T\ dry. Musculoskeletal: No signs and/or symptoms reported regarding the musculoskeletal system. Circulation, motion, and sensation intact. Capillary refill < 3 seconds, Range of motion: intact in all extremities. 10:08 Reassessment: Patient appears in no apparent distress at this time. No changes from kc6 previously documented assessment. Patient and/or family updated on plan of care and expected duration. Pain level reassessed. Patient is alert, oriented x 3, equal unlabored respirations, skin warm/dry/pink. Vital Signs: 09:01 BP 127 / 87; Pulse 89; Resp 16; Temp 98.4(O); Pulse Ox 100% on R/A; Weight 85.28 kg; hb Height 5 ft. 6 in. ; Pain 2/10; 10:15 BP 120 / 79; Pulse 74; Resp 13 S; Pulse Ox 100% on R/A; kc6 09:01 Body Mass Index 30.34 (85.28 kg, 167.64 cm) hb 09:01 Pain Scale: Adult hb ED Course: 08:54 Patient arrived in ED. am2 09:00 Armando Camargo PA is PHCP. cp 09:00 Carson Maier MD is Attending Physician. cp 09:01 Kassi Alvarado, RN is Primary Nurse. kc6 09:02 Triage completed. hb 09:02 Arm band placed on. hb 09:08 Patient has correct armband on for positive identification. Bed in low position. Call kc6 light in reach. Side rails up X 1. Adult w/ patient. Client placed on continuous cardiac and pulse oximetry monitoring. NIBP monitoring applied. case monitor on. 09:09 Patient maintains SpO2 saturation greater than 95% on room air. kc6 09:36 Urinalysis W/Microscopic Sent. kc6 09:36 PREGU Sent. kc6 09:36 Inserted saline lock: 20 gauge in right antecubital area, using aseptic technique. kc6 Blood collected. 10:12 XRAY Chest (1 view) In Process Unspecified. EDMS 11:03 No provider procedures requiring assistance completed. IV discontinued, intact, kc6 bleeding controlled, No redness/swelling at site. Pressure dressing applied. Administered Medications: No medications were administered Medication: 11:03 VIS not applicable for this client. kc6 Outcome: 10:51 Discharge ordered by MD. cp 11:03 Discharged to home ambulatory, with significant other. kc6 11:03 Condition: stable 11:03 Discharge instructions given to patient, Instructed on discharge instructions, follow up and referral plans. medication usage, Demonstrated understanding of instructions, follow-up care, medications, Prescriptions given X 1. 11:04 Patient left the ED. kc6 Signatures: Dispatcher [employer] EDOH Armando Camargo PA PA cp Baxter, Heather, RN RN Mildred Rivers am2 Kassi Alvarado, RN RN kc6
--- NOTE | 2022-09-01 10:51 | EDPHYS ---
Physician Documentation [facility] Name: Fadumo Adams Age: 27 yrs Sex: Female : 1995 Arrival Date: 09/01/2022 Time: 08:54 Bed 15 Private MD: ED Physician Carson Maier HPI: 09/01 09:20 This 27 yrs old Female presents to ER via Ambulatory with complaints of Chest Pain. cp 09:20 The patient or guardian reports chest pain that is located primarily in the left side cp anterior and lateral chest. Patient reports pain has been intermittent for past several weeks. Pain radiates to back at times. Historical: - Allergies: 09:02 Demerol; hb 09:02 Iodinated Contrast Media - IV Dye; hb 09:02 Iodine; hb 09:02 PENICILLINS; hb 09:02 Shellfish Containing Products; hb 09:02 Wellbutrin; hb - Home Meds: 09:02 [place] Thyroid Oral [Active]; Fluoxetine Oral [Active]; Klonopin 1 mg Oral tab [Active];hb - PMHx: 09:02 Anxiety; Depression; Hypothyroidism; Kidney stones; Migraines; hb - Immunization history:: Adult Immunizations up to date. - Social history:: Smoking status: Patient denies any tobacco usage or history of. ROS: 09:25 Constitutional: Negative for body aches, chills, fever, poor PO intake. cp 09:25 Eyes: Negative for injury, pain, redness, and discharge. cp 09:25 ENT: Negative for drainage from ear(s), ear pain, sore throat, difficulty swallowing, difficulty handling secretions. 09:25 Cardiovascular: Positive for Negative for edema, palpitations. 09:25 Respiratory: Negative for cough, shortness of breath, wheezing. 09:25 Abdomen/GI: Negative for abdominal pain, vomiting, diarrhea, constipation. 09:25 : Negative for urinary symptoms, vaginal discharge. cp 09:25 Skin: Negative for cellulitis, rash. 09:25 Neuro: Negative for altered mental status, numbness, seizure activity, weakness. 09:25 All other systems are negative. Exam: 09:30 Constitutional: The patient appears in no acute distress, alert, awake, cp non-diaphoretic, non-toxic, well developed, well nourished. 09:30 Head/face: Sinus tenderness, that is mild. cp 09:30 Eyes: Periorbital structures: appear normal, Pupils: equal, round, and reactive to light and accomodation, Extraocular movements: intact throughout, Conjunctiva: normal, no exudate, no injection, Sclera: no appreciated abnormality, Lids and lashes: appear normal, bilaterally. 09:30 ENT: External ear(s): are unremarkable, Nose: is normal, Mouth: is normal, Posterior pharynx: Airway: normal. 09:30 Neck: ROM/movement: is normal, is supple, without pain, no range of motions limitations, limited range of motion, is not appreciated. 09:30 Chest/axilla: Inspection: normal. 09:30 Cardiovascular: Rate: normal, Rhythm: regular. 09:30 Respiratory: the patient does not display signs of respiratory distress, Respirations: normal, no use of accessory muscles, no shallow respirations, no splinting, no tachypnea. 09:30 Abdomen/GI: Inspection: abdomen appears normal, Palpation: abdomen is soft and non-tender, in all quadrants. 09:32 ECG was reviewed by the Attending Physician. Vital Signs: 09:01 BP 127 / 87; Pulse 89; Resp 16; Temp 98.4(O); Pulse Ox 100% on R/A; Weight 85.28 kg; hb Height 5 ft. 6 in. ; Pain 2/10; 10:15 BP 120 / 79; Pulse 74; Resp 13 S; Pulse Ox 100% on R/A; kc6 09:01 Body Mass Index 30.34 (85.28 kg, 167.64 cm) hb 09:01 Pain Scale: Adult hb MDM: 09:01 Patient medically screened. cp 10:50 Data reviewed: vital signs, nurses notes, lab test result(s), EKG, radiologic studies, cp plain films. 10:50 Consideration of Admission/Observation Escalation of care including cp admission/observation considered. Test considered but Not performed: CT: chest. 09/01 09:14 Order name: Basic Metabolic Panel; Complete Time: 10:10 cp 09/01 10:11 Interpretation: Normal except: CL 110. 09/01 09:14 Order name: CBC with Diff; Complete Time: 10:45 09/01 10:11 Interpretation: Normal except: RUBIN% 39.5; LYM% 51.4. cp 09/01 09:14 Order name: Magnesium; Complete Time: 10:10 cp 09/01 10:11 Interpretation: MG 2.1; Reviewed. cp 09/01 09:14 Order name: Troponin HS; Complete Time: 10:10 cp 09/01 10:11 Interpretation: Troponin HS 3.9; Reviewed. 09/01 09:14 Order name: PREGU; Complete Time: 10:10 cp 09/01 09:14 Order name: Urinalysis W/Microscopic; Complete Time: 10:10 cp 09/01 10:11 Interpretation: Reviewed. 09/01 10:39 Order name: Manual Differential; Complete Time: 10:45 EDMS 09/01 10:45 Interpretation: Normal except: SEGS 32; LYM 62. 09/01 09:14 Order name: XRAY Chest (1 view) 09/01 09:14 Order name: EKG; Complete Time: 09:15 cp 09/01 09:14 Order name: Cardiac monitoring; Complete Time: 09:16 09/01 09:14 Order name: EKG - Nurse/Tech; Complete Time: 09:36 cp 09/01 09:14 Order name: IV Saline Lock; Complete Time: 09:36 cp 09/01 09:14 Order name: Labs collected and sent; Complete Time: 09:36 09/01 09:14 Order name: O2 Per Protocol; Complete Time: 09:16 cp 09/01 09:14 Order name: O2 Sat Monitoring; Complete Time: 09:16 cp EC:32 Rate is 92 beats/min. Rhythm is regular. PA interval is normal. QRS interval is normal. cp QT interval is normal. T waves are Inverted in lead aVR. Interpreted by me. Reviewed by me. Administered Medications: No medications were administered Disposition: 14:13 Co-signature as Attending Physician, Carson Maier MD I agree with the assessment and kdr plan of care. Disposition Summary: 09/01/22 10:51 Discharge Ordered Location: Home cp Problem: new cp Symptoms: have improved cp Condition: Stable cp Diagnosis - Chest pain, unspecified cp Followup: cp - With: Private Physician - When: 2 - 3 days - Reason: Recheck today's complaints Discharge Instructions: - Discharge Summary Sheet cp - Nonspecific Chest Pain, Adult cp Forms: - Medication Reconciliation Form cp - Thank You Letter cp - Antibiotic Education cp - Prescription Opioid Use cp Prescriptions: - Ibuprofen 800 mg Oral Tablet - take 1 tablet by ORAL route every 8 hours As needed take with food; 30 tablet; cp Refills: 0, Product Selection Permitted Signatures: Dispatcher [employer] Carson Dey MD MD kdr Page, Corey, PA PA cp Baxter, Heather, RN RN hb
--- NOTE | 2022-09-01 11:00 | RAD REPORT ---
EXAM DESCRIPTION: RAD - Chest Single View - 09/01/2022 10:10 am CLINICAL HISTORY: CHEST PAIN Chest pain. COMPARISON: Chest Pa And Lat (2 Views) dated 07/20/2019 FINDINGS: Portable technique limits examination quality. The lungs are grossly clear. The heart is normal in size. No displaced fractures. IMPRESSION: No acute intrathoracic process suspected.
[2022-09-01 11:44] VITALS: TEMP 98.4; O2SAT 100
[2022-09-01 11:58] VITALS: BP 120/79
--- NOTE | 2022-09-02 11:44 | EKG ---
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
== END 2022-09-01 11:04 | disposition home or self-care (01) ==
LOC: ER 08:54
DX: R07.89 Other chest pain (principal); F41.9 Anxiety disorder, unspecified; E03.9 Hypothyroidism, unspecified; Z88.0 Allergy status to penicillin; Z88.5 Allergy status to narcotic agent; Z88.8 Allergy status to other drugs, medicaments and biological substances; Z91.013 Allergy to seafood; Z91.041 Radiographic dye allergy status; Z91.048 Other nonmedicinal substance allergy status
CPT/HCPCS: 36415; 71045; 80048; 81001; 81025; 83735; 84484; 85025; 93005; 99285

== ENCOUNTER 2023-11-11 15:54 | Emergency (ER) | payer BC ==
[2023-11-11] MEDS ORDERED: NA CHLORIDE 0.9% 1,000 ML ONE (16:34)
[2023-11-11 16:56] LABS: Specific Gravity 1.007 (1.005-1.030)
[2023-11-11 16:58] LABS: Specific Gravity 1.007 (1.005-1.030); Sqamous Epithelial <5 /HPF (None Seen); Urine Bacteria None Seen /HPF (<20); Urine Bilirubin NEGATIVE (Negative); Urine Blood Negative (Negative); Urine Clarity Clear (Clear); Urine Color Colorless (Yellow); Urine Culture Reflex Order NOT NEEDED; Urine Glucose NEGATIVE (Negative); Urine Ketones NEGATIVE (Negative); Urine Micro Reflex YN NO BILL MICROSCOPIC; Urine Nitrite NEGATIVE (Negative); Urine Protein NEGATIVE (Negative); Urine RBC <5 /HPF (None Seen); Urine Urobilinogen Normal (Normal); Urine WBC None Seen /HPF (<5); Urine Yeast (Budding) Trace /HPF (None Seen)
[2023-11-11 17:00] LABS: Absolute Basophils 0.1 K/uL (0-0.5); Absolute Eosinophils 0.3 K/uL (0-0.5); Absolute Monocytes 0.8 K/uL (0.1-1.3); Absolute Neutrophil 7.7 K/uL (1.8-8.0); Basophils % 0.6 % (0-1.3); Eosinophils % 2.5 % (0-4.4); Hematocrit 40.7 % (36.0-45.0); Hemoglobin 13.9 g/dL (12.0-15.0); Lymphocytes % 30.8 % (15.3-44.8); MCHC 34.1 g/dL (32.0-36.0); MCV 85.2 fL (80-100); Monocytes % 6.4 % (3.3-12.3); Neutrophils % 59.7 % (41.7-73.7); Nucleated RBC Absolute Count 0.1 (0-0); Nucleated Red Blood Cells % 0.5 % (0-0); Platelets 284 thou/uL (152-406); RBC Red Blood Cell Count 4.78 M/uL (3.86-4.86); Red Cell Distribution Width 13.3 % (12.1-15.2)
[2023-11-11 17:08] LABS: PT Prothrombin Time 12.4 SECONDS (9.4-12.5); Protime INR 1.11
[2023-11-11 17:15] LABS: ALT/SGPT 30 U/L (13-56); Albumin 4.2 g/dL (3.4-5.0); Albumin/Globulin Ratio 1.1 (1.1-1.8); Alkaline Phosphatase 81 U/L (45-117); Anion Gap 9.9 mEq/L (5.0-15.0); BUN Blood Urea Nitrogen 11 mg/dL (7-18); Bicarbonate 27 mEq/L (21-32); Bilirubin Total 0.3 mg/dL (0.2-1.0); Globulin 3.8 g/dL (2.3-3.5); Glomerular Filtration Rate 103 ml/min (=/>90); Glucose Level 103 mg/dL (74-106); Magnesium 2.4 mg/dL (1.6-2.4); Potassium 3.9 mEq/L (3.5-5.1); Sodium Level 138 mEq/L (136-145)
--- NOTE | 2023-11-11 17:18 | RAD REPORT ---
[facility] CLINICAL HISTORY: syncope COMPARISON: Chest Single View dated 09/01/2022; Chest Pa And Lat (2 Views) dated 07/20/2019 TECHNIQUE: Portable AP view of the chest. FINDINGS: The lungs are clear. No pneumothorax or effusion. The cardiomediastinal contours are unre markable. IMPRESSION: No acute cardiopulmonary process.
[2023-11-11 17:19] LABS: AST/SGOT < 10 U/L (15-37); Bilirubin Direct < 0.2 mg/dL (0-0.2); Bilirubin Indirect, Calculated 0.1 mg/dL (0.2-0.8); Troponin High Sensitivity < 3.0 pg/mL (<58.9)
--- NOTE | 2023-11-11 17:28 | RAD REPORT ---
EXAM DESCRIPTION: CT - Head Brain Wo Cont - 11/11/2023 4:59 pm CLINICAL HISTORY: Syncope;Headache COMPARISON: Head Brain Wo Cont dated 07/26/2018 TECHNIQUE: Noncontrast head CT images were obtained without IV contrast. Multiplanar reformats were generated and reviewed. All CT scans are performed using dose optimization technique as appropriate and may include automated exposure control or mA/KV adjustment according to patient size. FINDINGS: No intracranial hemorrhage, mass, or edema. Midline structures are unremarkable. Normal ventricular caliber for age. Flores-white matter differentiation is preserved, without evidence of acute infarct. No abnormal extra- axial fluid collections. Mastoid air cells and visualized portions of the paranasal sinuses are clear. No acute bony findings. IMPRESSION: No evidence of an acute intracranial process.
[2023-11-11] MEDS ORDERED: dexAMETHasone 10 MG/ML VIAL ONE (18:23)
[2023-11-11] MEDS ORDERED: DIPHENHYDRAMINE 50 MG/ML VIAL ONE (18:23)
[2023-11-11] MEDS ORDERED: METOCLOPRAMIDE 10 MG/2mL INJ ONE (18:23)
[2023-11-11] MEDS ORDERED: KETOROLAC 30 MG/ML INJ ONE (18:23)
--- NOTE | 2023-11-11 19:46 | EDPHYS ---
Physician Documentation [facility] Name: Fadumo Adams Age: 28 yrs Sex: Female : 1995 Arrival Date: 11/11/2023 Time: 15:54 Bed 15 Private MD: ED Physician Armando Redman HPI: 11/10 16:15 This 28 yrs old Female presents to ER via Ambulatory with complaints of Dizziness, cp Headache, Worst Ever, Near Syncope. 16:15 The patient presents with dizziness, feeling faint, generalized weakness, cp lightheadedness. 16:15 Associated signs and symptoms: Pertinent positives: syncope, Pertinent negatives: cp abdominal pain, chest pain, focal weakness, head injury, numbness, palpitations, seizure, vomiting. Patient's baseline: Neuro: alert and fully oriented, Motor: no deficits, Ambulation: walks without assistance, Speech: normal. Patient reports HX of migraine headaches and has seen neurologist in the past. Missed appt today with neurologist to come to ED for evaluation. Patient reports this headache started 2 weeks ago. 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 - Infectious Disease History:: Denies. - Social history:: Smoking status: Patient denies any tobacco usage or history of. ROS: 16:20 Constitutional: Negative for body aches, chills, fever, poor PO intake, cp 16:20 Eyes: Positive for photophobia, cp 16:20 ENT: Negative for drainage from ear(s), ear pain, sore throat, difficulty swallowing, difficulty handling secretions, 16:20 Cardiovascular: Negative for chest pain, edema, palpitations, 16:20 Respiratory: Negative for cough, shortness of breath, wheezing, 16:20 Abdomen/GI: Positive for nausea, Negative for abdominal pain, diarrhea, constipation, active vomiting, 16:20 : Negative for urinary symptoms, 16:20 Neuro: Positive for dizziness, headache, syncope, Negative for altered mental status, numbness, speech changes, weakness, 16:20 All other systems are negative, Exam: 16:25 Constitutional: The patient appears in no acute distress, alert, awake, cp non-diaphoretic, non-toxic, well developed, well nourished, uncomfortable, 16:25 Head/Face: Normocephalic, atraumatic. cp 16:25 Eyes: Periorbital structures: appear normal, Conjunctiva: normal, no exudate, no injection, Sclera: no appreciated abnormality, Lids and lashes: appear normal, bilaterally, 16:25 ENT: External ear(s): are unremarkable, Nose: is normal, Mouth: Lips: moist, Oral mucosa: pink and intact, moist, Posterior pharynx: is normal, airway is patent, no erythema, no exudate, 16:25 Neck: ROM/movement: is normal, is supple, without pain, no range of motions limitations, no meningismus, no nuchal rigidity, 16:25 Chest/axilla: Inspection: normal, 16:25 Cardiovascular: Rate: normal, Rhythm: regular, 16:25 Respiratory: the patient does not display signs of respiratory distress, Respirations: normal, no use of accessory muscles, no retractions, labored breathing, is not present, Breath sounds: are clear throughout, no decreased breath sounds, no stridor, no wheezing, 16:25 Abdomen/GI: Inspection: abdomen appears normal, Palpation: abdomen is soft and non-tender, in all quadrants, 16:25 Neuro: Orientation: to person, place \T\ time. Mentation: is normal, Cerebellar function: Romberg testing is negative, Motor: moves all fours, strength is normal, Sensation: no obvious gross deficits, Gait: is steady, at a normal pace, without difficulty, 16:26 ECG was reviewed by the Attending Physician. cp Vital Signs: 16:02 BP 155 / 78; Pulse 95; Resp 17; Temp 98.6; Pulse Ox 98% on R/A; Weight 85.28 kg; Height me1 5 ft. 6 in. ; Pain 5/10; 17:50 BP 105 / 72; Pulse 90; Resp 16; Pulse Ox 99% ; bp 16:02 Body Mass Index 30.34 (85.28 kg, 167.64 cm) me1 16:02 Pain Scale: Adult me1 MDM: 16:11 Patient medically screened. 17:00 Differential diagnosis: cardiac arrhythmia, CVA, hypovolemia, idiopathic dizziness, cp TIA, migraine. 19:45 Data reviewed: vital signs, nurses notes, lab test result(s), EKG, radiologic studies, cp CT scan, and as a result, I will discharge patient. 19:45 I considered the following discharge prescriptions or medication management in the emergency department Medications were administered in the Emergency Department. See MAR. Independent interpretation of the following test(s) in the Emergency Department EKG: See my EKG interpretation above. Counseling: I had a detailed discussion with the patient and/or guardian regarding the historical points, exam findings, and any diagnostic results supporting the discharge/admit diagnosis, lab results, radiology results, the need for outpatient follow up, a neurologist, to return to the emergency department if symptoms worsen or persist or if there are any questions or concerns that arise at home. Response to treatment: the patient's symptoms have markedly improved after treatment, and as a result, I will discharge patient. 11/10 16:12 Order name: Basic Metabolic Panel; Complete Time: 18:15 11/10 16:12 Order name: CBC with Diff; Complete Time: 18:15 11/10 16:12 Order name: LFT's; Complete Time: 18:15 11/10 16:12 Order name: Magnesium; Complete Time: 18:15 11/10 16:12 Order name: PT-INR; Complete Time: 18:15 11/10 16:12 Order name: Troponin HS; Complete Time: 18:15 11/10 16:12 Order name: Urinalysis W/Microscopic; Complete Time: 18:15 11/10 16:12 Order name: Test, Urine; Complete Time: 18:15 11/10 16:12 Order name: XRAY Chest (1 view); Complete Time: 18:15 11/10 16:31 Order name: CT Head Brain wo Cont; Complete Time: 18:15 11/10 16:12 Order name: Cardiac monitoring; Complete Time: 16:15 11/10 16:12 Order name: EKG - Nurse/Tech; Complete Time: 16:27 cp 11/10 16:12 Order name: IV Saline Lock; Complete Time: 16:48 cp 11/10 16:12 Order name: Labs collected and sent; Complete Time: 16:48 cp 11/10 16:12 Order name: O2 Per Protocol; Complete Time: 16:15 cp 11/10 16:12 Order name: O2 Sat Monitoring; Complete Time: 16:15 cp EC:26 Rate is 99 beats/min. Rhythm is regular. MD interval is normal. QRS interval is normal. cp QT interval is normal. T waves are Inverted in lead aVR. Interpreted by me. Reviewed by me. Administered Medications: 16:48 Drug: NS 0.9% IV 1000 ml IV at 1 bolus Per protocol; 1000 mL bolus Route: IV; Rate: 1 bp bolus; Site: right upper arm; 18:31 Drug: metoCLOPramide IVP 10 mg IVP once; over 1 to 2 minutes Route: IVP; Site: right bp upper arm; 18:31 Drug: diphenhydrAMINE IVP 25 mg IVP once Route: IVP; Site: right upper arm; bp 18:31 Drug: Ketorolac IVP 15 mg IVP once Route: IVP; Site: right upper arm; bp 18:31 Drug: Dexamethasone IVP 10 mg IVP once; (not to exceed 40 mg) Route: IVP; Site: right bp upper arm; Disposition Summary: 11/11/23 19:46 Discharge Ordered Notes: Location: Home cp Problem: new cp Symptoms: have improved cp Condition: Stable cp Diagnosis - Headache cp - Syncope cp Followup: cp - With: Private Physician - When: 2 - 3 days - Reason: Recheck today's complaints Discharge Instructions: - Discharge Summary Sheet cp - Migraine Headache cp - Syncope cp Forms: - Medication Reconciliation Form cp - Antibiotic Education cp - Prescription Opioid Use cp - Patient Portal Instructions cp - Leadership Thank You Letter cp Prescriptions: - Fioricet 50-300-40 mg Oral capsule - take 1 capsule ORAL route every 6 hours; 20 capsule; Refills: 0, Product cp Selection Permitted - Zofran 4 mg Oral Tablet - take 1 tablet ORAL route every 12 hours As needed; 20 tablet; Refills: 0, cp Product Selection Permitted Addendum: 11/15/2023 05:09 Co-signature as Attending Physician, Armando Redman MD I agree with the assessment and c jenkins plan of care. Signatures: Dispatcher [employer] EDArmando Doss MD MD cha Page, Corey, PA PA Robbie Landa, RN RN bp Bethany Le RN RN me1 Corrections: (The following items were deleted from the chart) 11/10 16:13 16:13 Chest Single View+[email or web address] ordered. IAM VITALE
--- NOTE | 2023-11-11 19:46 | ER ---
Nurse's Notes [facility] Name: Fadumo Adams Age: 28 yrs Sex: Female : 1995 Arrival Date: 11/11/2023 Time: 15:54 Bed 15 Private MD: Diagnosis: Headache;Syncope Presentation: 11/10 16:02 Chief complaint: Patient states: c/o SHEPPARD that is pressure "5/10" with associated me1 dizziness. Reports syncopal episode while walking on 11/05/23. Coronavirus screen: Vaccine status: Patient reports being unvaccinated. Ebola Screen: No symptoms or risks identified at this time. Initial Sepsis Screen: Does the patient meet any 2 criteria? No. Patient's initial sepsis screen is negative. Risk Assessment: Do you want to hurt yourself or someone else? Patient reports no desire to harm self or others. Onset of symptoms was November 05, 2023. 16:02 Method Of Arrival: Ambulatory nc1 16:02 Acuity: ESTUARDO 4 me1 Triage Assessment: 16:06 Headache History: The patient has had previous headaches and this one is more severe me1 than previous episodes. General: Appears uncomfortable, well groomed, well developed, well nourished, Behavior is calm, cooperative, appropriate for age. Pain: Complains of pain in head Pain does not radiate. Pain currently is 5 out of 10 on a pain scale. Quality of pain is described as aching, Pain began gradually, Is continuous. EENT: No signs and/or symptoms were reported regarding the EENT system. Neuro: Level of Consciousness is awake, alert, obeys commands, Oriented to person, place, time, situation, Appropriate for age Reports dizziness, headache. Cardiovascular: Patient's skin is warm and dry. Respiratory: Airway is patent Respiratory effort is even, unlabored, Respiratory pattern is regular, symmetrical. GI: No signs and/or symptoms were reported involving the gastrointestinal system. GI: Reports nausea. : No signs and/or symptoms were reported regarding the genitourinary system. Derm: Skin is intact, is healthy with good turgor, Skin is pink, warm \\T\\ dry. Musculoskeletal: No signs and/or symptoms reported regarding the musculoskeletal system. 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 - Infectious Disease History:: Denies. - Social history:: Smoking status: Patient denies any tobacco usage or history of. Screenin:10 [facility] ED Fall Risk Assessment (Adult) History of falling in the last 3 months, bp including since admission No falls in past 3 months (0 pts) Confusion or Disorientation No (0 pts) Intoxicated or Sedated No (0 pts) Impaired Gait No (0 pts) Mobility Assist Device Used No (0 pt) Altered Elimination No (0 pt) Score/Fall Risk Level 0 - 2 = Low Risk. Abuse screen: Denies threats or abuse. Denies injuries from another. Nutritional screening: No deficits noted. Tuberculosis screening: No symptoms or risk factors identified. Assessment: 16:10 General: Appears in no apparent distress. Behavior is cooperative, appropriate for age, bp anxious. Pain: Complains of pain in head. 17:50 Reassessment: Patient appears in no apparent distress at this time. Patient is alert, bp oriented x 3, equal unlabored respirations, skin warm/dry/pink. Vital Signs: 16:02 BP 155 / 78; Pulse 95; Resp 17; Temp 98.6; Pulse Ox 98% on R/A; Weight 85.28 kg; Height me1 5 ft. 6 in. ; Pain 5/10; 17:50 BP 105 / 72; Pulse 90; Resp 16; Pulse Ox 99% ; bp 16:02 Body Mass Index 30.34 (85.28 kg, 167.64 cm) me1 16:02 Pain Scale: Adult nc1 ED Course: 15:56 Patient arrived in ED. im 16:04 Armando Camargo PA is PHCP. cp 16:04 Armando Redman MD is Attending Physician. cp 16:06 Triage completed. me1 16:06 Arm band placed on right wrist. me1 16:10 Patient has correct armband on for positive identification. bp 16:14 Robbie Malhotra, RN is Primary Nurse. bp 16:27 EKG done, by ED staff. tm3 16:48 XRAY Chest (1 view) In Process Unspecified. EDMS 16:48 Initial lab(s) drawn, by nc, sent to lab. Urine collected: clean catch specimen, clear. bp Inserted saline lock: 22 gauge in right upper arm, using aseptic technique. Blood collected. Flushed with 10 mL NS. 17:00 CT Head Brain wo Cont In Process Unspecified. EDMS 20:19 IV discontinued, intact, bleeding controlled, No redness/swelling at site. Pressure jm12 dressing applied. Administered Medications: 16:48 Drug: NS 0.9% IV 1000 ml IV at 1 bolus Per protocol; 1000 mL bolus Route: IV; Rate: 1 bp bolus; Site: right upper arm; 18:31 Drug: metoCLOPramide IVP 10 mg IVP once; over 1 to 2 minutes Route: IVP; Site: right bp upper arm; 18:31 Drug: diphenhydrAMINE IVP 25 mg IVP once Route: IVP; Site: right upper arm; bp 18:31 Drug: Ketorolac IVP 15 mg IVP once Route: IVP; Site: right upper arm; bp 18:31 Drug: Dexamethasone IVP 10 mg IVP once; (not to exceed 40 mg) Route: IVP; Site: right bp upper arm; Outcome: 19:46 Discharge ordered by MD. cp 20:19 Discharged to home ambulatory, 12 20:19 Condition: stable 20:19 Discharge instructions given to family, Instructed on discharge instructions, follow up and referral plans. medication usage, Demonstrated understanding of instructions, follow-up care, medications, 20:20 Patient left the ED. jm12 Signatures: Dispatcher [employer] EDMS Alec Urena tm3 Armando Camargo PA PA cp Peltier, Brian, RN RN Marly Donald Michelle, RN RN nc1 Lauren Mary RN RN 12
--- NOTE | 2023-11-13 13:23 | EKG ---
Test Date: 2023-11-11 Test Time: 16:24:07 Flying Ii Instructor: TM MEASUREMENT RESULTS: Intervals: Rate: 99 WA: 138 QRSD: 72 QT: 366 QTc: 469 [place]: P: 50 [place]: 138 QRS: 36 T: 45 INTERPRETIVE STATEMENTS: Normal sinus rhythm with sinus arrhythmia Normal ECG Compared to ECG 09/01/2022 09:26:58 No significant changes Electronically Signed On 11-13-23 13:15:45 CDT by Elijah Florentino
[2023-11-13 17:52] VITALS: BP 105/72; TEMP 98.6; O2SAT 99
== END 2023-11-11 20:20 | disposition home or self-care (01) ==
LOC: ER 15:54
DX: R55 Syncope and collapse (principal); R51.9 Headache, unspecified; Z88.0 Allergy status to penicillin; Z88.5 Allergy status to narcotic agent; Z88.8 Allergy status to other drugs, medicaments and biological substances; Z91.013 Allergy to seafood; Z91.041 Radiographic dye allergy status
CPT/HCPCS: 93005; 85025; 81001; 80048; 36415; 83735; 81025; 85610; 80076; 84484; 70450; 71045; 96375; 96374; 99284; J2765; J1200; J1100; J7030

== ENCOUNTER 2023-11-28 14:16 | Emergency (ER) | payer BC ==
[2023-11-28] MEDS ORDERED: NA CHLORIDE 0.9% 1,000 ML ONE (15:16)
[2023-11-28 15:27] LABS: Absolute Eosinophils 0.2 K/uL (0-0.5); Absolute Lymphocytes (CBC) 2.6 K/uL (0.7-4.9); Absolute Monocytes 0.4 K/uL (0.1-1.3); Absolute Neutrophil 5.6 K/uL (1.8-8.0); Basophils % 0.5 % (0-1.3); Eosinophils % 1.9 % (0-4.4); Hematocrit 40.8 % (36.0-45.0); Hemoglobin 13.8 g/dL (12.0-15.0); Lymphocytes % 29.4 % (15.3-44.8); MCH 28.7 pg (27.0-35.0); MCHC 33.7 g/dL (32.0-36.0); MCV 85.1 fL (80-100); MPV 8.1 fL (7.6-11.3); Monocytes % 4.9 % (3.3-12.3); Neutrophils % 63.3 % (41.7-73.7); Nucleated Red Blood Cells % 0.1 % (0-0); Platelets 281 thou/uL (152-406); RBC Red Blood Cell Count 4.79 M/uL (3.86-4.86); Red Cell Distribution Width 13.1 % (12.1-15.2)
[2023-11-28 15:38] LABS: Specific Gravity 1.013 (1.005-1.030); Sqamous Epithelial <5 /HPF (None Seen); Urine Bacteria None Seen /HPF (<20); Urine Bilirubin NEGATIVE (Negative); Urine Blood Negative (Negative); Urine Clarity Clear (Clear); Urine Color Light-Yellow (Yellow); Urine Culture Reflex Order NOT NEEDED; Urine Glucose NEGATIVE (Negative); Urine Ketones NEGATIVE (Negative); Urine Microscopic Reflex YN ORDER UMIC; Urine Mucus Slight /HPF (None Seen); Urine Nitrite NEGATIVE (Negative); Urine Protein NEGATIVE (Negative); Urine RBC <5 /HPF (None Seen); Urine Urobilinogen Normal (Normal); Urine WBC <5 /HPF (<5); Urine pH 5.5 (5.0-7.0)
[2023-11-28 15:45] LABS: Specific Gravity 1.013 (1.005-1.030)
[2023-11-28 15:49] LABS: ALT/SGPT 31 U/L (13-56); AST/SGOT 11 U/L (15-37); Albumin 3.8 g/dL (3.4-5.0); Alkaline Phosphatase 74 U/L (45-117); Anion Gap 9.6 mEq/L (5.0-15.0); BUN Blood Urea Nitrogen 10 mg/dL (7-18); Bicarbonate 24 mEq/L (21-32); Bilirubin Total 0.3 mg/dL (0.2-1.0); Globulin 3.7 g/dL (2.3-3.5); Glomerular Filtration Rate 109 ml/min (=/>90); Glucose Level 163 mg/dL (74-106); Magnesium 2.1 mg/dL (1.6-2.4); Potassium 3.6 mEq/L (3.5-5.1); Protein, Total 7.5 g/dL (6.4-8.2); Sodium Level 137 mEq/L (136-145)
[2023-11-28 15:50] LABS: Bilirubin Direct < 0.2 mg/dL (0-0.2); Bilirubin Indirect, Calculated 0.1 mg/dL (0.2-0.8); Troponin High Sensitivity < 3.0 pg/mL (<58.9)
--- NOTE | 2023-11-28 16:00 | RAD REPORT ---
EXAM DESCRIPTION: RAD - Chest Single View - 11/28/2023 3:38 pm CLINICAL HISTORY: PALPITATIONS Chest pain. COMPARISON: <Comparisons> FINDINGS: Portable technique limits examination quality. The lungs are grossly clear. The heart is normal in size. No displaced fractures. IMPRESSION: No acute intrathoracic process suspected.
--- NOTE | 2023-11-28 16:13 | EDPHYS ---
Physician Documentation [facility] Name: Fadumo Adams Age: 28 yrs Sex: Female : 1995 Arrival Date: 11/28/2023 Time: 14:16 Bed 14 Private MD: ED Physician Armando Redman HPI: 11/27 15:24 This 28 yrs old Female presents to ER via Ambulatory with complaints of Near yefri Syncope. 15:24 The patient has experienced near-syncope, almost passed out, felt dizzy, felt faint, yefri felt generally weak. Onset: The symptoms/episode began/occurred just prior to arrival. Duration: This was a single episode, that lasted 30 second(s). Context: the episode(s) was witnessed, by family, occurred MALL. Associated injury: The patient did not suffer any apparent associated injury. Associated signs and symptoms: The patient has no apparent associated signs or symptoms. Current symptoms: decreased level of consciousness. The patient has experienced similar episodes in the past, multiple times. Historical: - Allergies: 14:26 Demerol; hb 14:26 Iodinated Contrast Media - IV Dye; hb 14:26 PENICILLINS; hb 14:26 Shellfish Containing Products; hb 14:26 Wellbutrin; hb 14:26 Iodine; hb - Home Meds: 14:26 Klonopin 1 mg Oral tab [Active]; Fluoxetine Oral [Active]; [place] Thyroid Oral [Active];hb - PMHx: 14:26 Anxiety; Depression; Hypothyroidism; Kidney stones; Migraines; hb - PSHx: 14:26 Tonsillectomy; hb - Immunization history:: Adult Immunizations up to date. - Infectious Disease History:: Denies. - Social history:: Smoking status: Patient denies any tobacco usage or history of. - Family history:: not pertinent. ROS: 15:24 Constitutional: Negative for fever, chills, and weight loss, Eyes: Negative for injury, yefri pain, redness, and discharge, ENT: Negative for injury, pain, and discharge, Neck: Negative for injury, pain, and swelling, Cardiovascular: Negative for chest pain, palpitations, and edema, Respiratory: Negative for shortness of breath, cough, wheezing, and pleuritic chest pain, Abdomen/GI: Negative for abdominal pain, nausea, vomiting, diarrhea, and constipation, Back: Negative for injury and pain, : Negative for injury, bleeding, discharge, and swelling, MS/Extremity: Negative for injury and deformity, Skin: Negative for injury, rash, and discoloration, Psych: Negative for depression, anxiety, suicide ideation, homicidal ideation, and hallucinations, Allergy/Immunology: Negative for hives, rash, and allergies, Endocrine: Negative for neck swelling, polydipsia, polyuria, polyphagia, and marked weight changes, Hematologic/Lymphatic: Negative for swollen nodes, abnormal bleeding, and unusual bruising, 15:24 Neuro: Positive for near syncope, weakness, Exam: 15:24 Constitutional: This is a well developed, well nourished patient who is awake, alert, yefri and in no acute distress. Head/Face: Normocephalic, atraumatic. Eyes: Pupils equal round and reactive to light, extra-ocular motions intact. Lids and lashes normal. Conjunctiva and sclera are non-icteric and not injected. Cornea within normal limits. Periorbital areas with no swelling, redness, or edema. ENT: Nares patent. No nasal discharge, no septal abnormalities noted. Tympanic membranes are normal and external auditory canals are clear. Oropharynx with no redness, swelling, or masses, exudates, or evidence of obstruction, uvula midline. Mucous membranes moist. Neck: Trachea midline, no thyromegaly or masses palpated, and no cervical lymphadenopathy. Supple, full range of motion without nuchal rigidity, or vertebral point tenderness. No Meningismus. Chest/axilla: Normal chest wall appearance and motion. Nontender with no deformity. No lesions are appreciated. Cardiovascular: Regular rate and rhythm with a normal S1 and S2. No gallops, murmurs, or rubs. Normal PMI, no JVD. No pulse deficits. Respiratory: Lungs have equal breath sounds bilaterally, clear to auscultation and percussion. No rales, rhonchi or wheezes noted. No increased work of breathing, no retractions or nasal flaring. Abdomen/GI: Soft, non-tender, with normal bowel sounds. No distension or tympany. No guarding or rebound. No evidence of tenderness throughout. Back: No spinal tenderness. No costovertebral tenderness. Full range of motion. Female : Normal external genitalia. Skin: Warm, dry with normal turgor. Normal color with no rashes, no lesions, and no evidence of cellulitis. MS/ Extremity: Pulses equal, no cyanosis. Neurovascular intact. Full, normal range of motion. Neuro: Awake and alert, GCS 15, oriented to person, place, time, and situation. Cranial nerves II-XII grossly intact. Motor strength 5/5 in all extremities. Sensory grossly intact. Cerebellar exam normal. Normal gait. Psych: Awake, alert, with orientation to person, place and time. Behavior, mood, and affect are within normal limits. 15:24 ECG was reviewed by the Attending Physician. 15:41 Musculoskeletal/extremity: DVT Exam: No signs of deep vein thrombosis. no pain, no yefri swelling, no tenderness, negative Homans' sign noted on exam, no appreciated bluish discoloration, no erythema, no increased warmth, Vital Signs: 14:24 BP 138 / 73; Pulse 114; Resp 16; Temp 98.1(O); Pulse Ox 99% on R/A; Weight 68.04 kg; hb Height 5 ft. 6 in. ; Pain 0/10; 15:43 BP 122 / 84 Supine; Pulse 96 MON; cc6 15:46 BP 118 / 94 Sitting; Pulse 102; cc6 15:49 BP 125 / 102 Standing; Pulse 126; cc6 16:05 BP 125 / 102; Pulse 104; Resp 18; Pulse Ox 100% on R/A; ld1 14:24 Body Mass Index 24.21 (68.04 kg, 167.64 cm) hb 14:24 Pain Scale: Adult hb NIH Stroke Scale Scores: 16:11 NIHSS Score: 0 yefri MDM: 14:25 Patient medically screened. yefri 15:32 Differential Diagnosis: aortic aneurysm, cardiac arrhythmia, cerebrovascular accident, yefri drug effect, emotional response, idiopathic syncope, , pseudo seizure, seizure, vasovagal episode. Data reviewed: vital signs, nurses notes, lab test result(s), EKG, radiologic studies, plain films. Consideration of Admission/Observation Patient was admitted/placed on observation. Escalation of care including admission/observation considered. I considered the following discharge prescriptions or medication management in the emergency department Medications were administered in the Emergency Department. See MAR. Independent interpretation of the following test(s) in the Emergency Department EKG: See my EKG interpretation above. Test considered but Not performed: CT: NO CT HEAD, HX OF NEG CT HEAD RECENT. Historians other than the Patient: Spouse/Significant Other: WELL INFORMED. Care significantly affected by the following chronic conditions: Obesity, ANXIETY, DEPRESSION, HYPOTHYROID KIDNEY STONES, MIGRAINES. Counseling: I had a detailed discussion with the patient and/or guardian regarding the historical points, exam findings, and any diagnostic results supporting the discharge/admit diagnosis, lab results, radiology results, the need for outpatient follow up, for definitive care, a nuclear supervising operator, a family practitioner. 11/27 14:39 Order name: Basic Metabolic Panel; Complete Time: 16:10 [facility] 11/27 14:39 Order name: CBC with Diff; Complete Time: 15:41 [facility] 11/27 14:39 Order name: D-Dimer; Complete Time: 16:10 [facility] 11/27 14:39 Order name: LFT's; Complete Time: 16:10 [facility] 11/27 14:39 Order name: Magnesium; Complete Time: 16:10 [facility] 11/27 14:39 Order name: Troponin HS; Complete Time: 16:10 [facility] 11/27 14:39 Order name: Urinalysis w/ reflexes; Complete Time: 15:41 [facility] 11/27 14:39 Order name: PREGU; Complete Time: 16:10 [facility] 11/27 14:39 Order name: XRAY Chest (1 view); Complete Time: 16:10 [facility] 11/27 14:39 Order name: Cardiac monitoring; Complete Time: 15:00 [facility] 11/27 14:39 Order name: EKG - Nurse/Tech; Complete Time: 15:00 [facility] 11/27 14:39 Order name: IV Saline Lock; Complete Time: 15:30 [facility] 11/27 14:39 Order name: Labs collected and sent; Complete Time: 15:30 [facility] 11/27 14:39 Order name: O2 Per Protocol; Complete Time: 15:00 [facility] 11/27 14:39 Order name: O2 Sat Monitoring; Complete Time: 15:00 [facility] 11/27 15:24 Order name: Orthostatics; Complete Time: 16:02 [facility] EC:24 Rate is 106 beats/min. Rhythm is regular. QRS Graham is Normal. MN interval is normal. yefri QRS interval is normal. QT interval is normal. No Q waves. T waves are Normal. No ST changes noted. Clinical impression: Sinus tachycardia and No evidence of ischemia. Interpreted by me. Reviewed by me. Administered Medications: 15:30 Drug: NS 0.9% IV 1000 ml IV at 1 bolus Per protocol; 1000 mL bolus Route: IV; Rate: 1 ld1 bolus; Site: right antecubital; 16:30 Follow up: Response: No adverse reaction; IV Status: Completed infusion; IV Intake: ld1 1000ml 16:28 Drug: ToPROL XL PO 25 mg PO once Route: PO; ld1 17:48 Follow up: Response: No adverse reaction ld1 Disposition Summary: 11/28/23 16:12 Discharge Ordered Notes: Location: Home yefri Problem: new yefri Symptoms: have improved yefri Condition: Stable yefri Diagnosis - Syncope Near yefri - Dehydration yefri Followup: yefri - With: Private Physician - When: 2 - 3 days - Reason: Recheck today's complaints, Continuance of care, Re-evaluation by your physician Followup: yefri - With: Elijah Florentino MD - When: 2 - 3 days - Reason: Recheck today's complaints, Continuance of care, Re-evaluation by your physician Discharge Instructions: - Discharge Summary Sheet yefri - Dehydration, Adult yefri - Near-Syncope yefri - Weakness yefri - Near-Syncope, [id number] yefri - Dehydration, Adult, [id number] yefri - Rehydration, Adult yefri Forms: - Medication Reconciliation Form yefri - Antibiotic Education yefri - Prescription Opioid Use yefri - Patient Portal Instructions [facility] - Leadership Thank You Letter [facility] Prescriptions: - Toprol XL 25 mg Oral Tablet - take 1 tablet ORAL route once daily; 20 tablet; Refills: 0, Product Selection yefri Permitted NIH Stroke Scale - NIH Stroke Score Date: 11/28/2023 Time: 16:11 Total Score = 0 10. Dysarthria (speech clarity - read or repeat words) - 0(Normal) 11. Extinction and Inattention (visual/tactile/auditory/spatial/personal) - 0(No abnormality) 1a. Level of Consciousness (LOC) - 0(Alert) 1b. Level of Consciousness (LOC) (Month \T\ Age) - 0(Both) 1c. LOC Commands (Open \T\ Closes Eyes/Master Control Operator) - 0(Both) 2. Best Gaze (Lateral Gaze Paresis) - 0(Normal) 3. Visual Field Loss - 0(No visual loss) 4. Facial Palsy - 0(Normal) 5a. Left Arm: Motor (10-second hold) - 0(No drift) 5b. Right Arm: Motor (10-second hold) - 0(No drift) 6a. Left Leg: Motor (5-second hold - always test supine) - 0(No drift) 6b. Right Leg: Motor (5-second hold - always test supine) - 0(No drift) 7. Limb Ataxia (finger/nose \T\ heel/zambrano - test with eyes open) - 0(Absent) 8. Sensory Loss (pinprick arms/legs/face) - 0(Normal) 9. Best Language: Aphasia (description/naming/reading) - 0(No aphasia) Initials: yefri Signatures: Dispatcher [employer] EDArmando Doss MD MD cha Baxter, Heather, ИРИНА GIFFORD Raina Miles RN RN ld1
--- NOTE | 2023-11-28 16:13 | ER ---
Nurse's Notes [facility] Name: Fadumo Adams Age: 28 yrs Sex: Female : 1995 Arrival Date: 11/28/2023 Time: 14:16 Bed 14 Private MD: Diagnosis: Syncope Near;Dehydration Presentation: 11/27 14:24 Chief complaint: Multiple near syncopal episodes over last 3-4 weeks, happened again hb today while grocery shopping. Symptoms start with muscle cramps, palpitations, then SOB and severe dizziness. Cariology appt pending. Coronavirus screen: At this time, the client does not indicate any symptoms associated with coronavirus-19. Ebola Screen: No symptoms or risks identified at this time. Initial Sepsis Screen: Does the patient meet any 2 criteria? No. Patient's initial sepsis screen is negative. Does the patient have a suspected source of infection? No. Patient's initial sepsis screen is negative. Risk Assessment: Do you want to hurt yourself or someone else? Patient reports no desire to harm self or others. Onset of symptoms was November 28, 2023. 14:24 Method Of Arrival: Ambulatory hb 14:24 Acuity: ESTUARDO 3 hb Triage Assessment: 14:26 General: Appears in no apparent distress. Behavior is cooperative, crying. Pain: Denies hb pain. Neuro: Level of Consciousness is awake, alert, obeys commands, Oriented to person, place, time, situation, Reports dizziness. Cardiovascular: Patient's skin is warm and dry. Respiratory: Respiratory effort is even, unlabored, Respiratory pattern is regular, symmetrical. Historical: - Allergies: 14:26 Demerol; hb 14:26 Iodinated Contrast Media - IV Dye; hb 14:26 PENICILLINS; hb 14:26 Shellfish Containing Products; hb 14:26 Wellbutrin; hb 14:26 Iodine; hb - Home Meds: 14:26 Klonopin 1 mg Oral tab [Active]; Fluoxetine Oral [Active]; [place] Thyroid Oral [Active];hb - PMHx: 14:26 Anxiety; Depression; Hypothyroidism; Kidney stones; Migraines; hb - PSHx: 14:26 Tonsillectomy; hb - Immunization history:: Adult Immunizations up to date. - Infectious Disease History:: Denies. - Social history:: Smoking status: Patient denies any tobacco usage or history of. - Family history:: not pertinent. Screenin:03 [facility] ED Fall Risk Assessment (Adult) History of falling in the last 3 months, ld1 including since admission No falls in past 3 months (0 pts) Confusion or Disorientation No (0 pts) Intoxicated or Sedated No (0 pts) Impaired Gait No (0 pts) Mobility Assist Device Used No (0 pt) Altered Elimination No (0 pt) Score/Fall Risk Level 0 - 2 = Low Risk Oriented to surroundings, Maintained a safe environment, Educated pt \T\ family on fall prevention, incl call for assistance when getting out of bed, Assessed \T\ reinforced patient's understanding of fall precautions, Provided non-skid footwear, Hourly rounding (assess needs \T\ fall precautionary measures) done, Used ambulatory aids as needed (educated on \T\ assisted with), Used gait belt as appropriate. Abuse screen: Denies threats or abuse. Denies injuries from another. Nutritional screening: No deficits noted. Tuberculosis screening: No symptoms or risk factors identified. Assessment: 16:03 General: Appears in no apparent distress. comfortable, Behavior is calm, cooperative, ld1 appropriate for age. Pain: Denies pain. Neuro: Level of Consciousness is awake, alert, obeys commands, Oriented to person, place, time, situation, Appropriate for age. Cardiovascular: Capillary refill < 3 seconds Patient's skin is warm and dry. Respiratory: Airway is patent Respiratory effort is even, unlabored. GI: Abdomen is flat, non-distended. : No signs and/or symptoms were reported regarding the genitourinary system. : Reports hematuria. EENT: No signs and/or symptoms were reported regarding the EENT system. Derm: No signs and/or symptoms reported regarding the dermatologic system. Musculoskeletal: No signs and/or symptoms reported regarding the musculoskeletal system. 16:28 Reassessment: Patient appears in no apparent distress at this time. No changes from ld1 previously documented assessment. Patient and/or family updated on plan of care and expected duration. Pain level reassessed. Patient is alert, oriented x 3, equal unlabored respirations, skin warm/dry/pink. Vital Signs: 14:24 BP 138 / 73; Pulse 114; Resp 16; Temp 98.1(O); Pulse Ox 99% on R/A; Weight 68.04 kg; hb Height 5 ft. 6 in. ; Pain 0/10; 15:43 BP 122 / 84 Supine; Pulse 96 MON; cc6 15:46 BP 118 / 94 Sitting; Pulse 102; cc6 15:49 BP 125 / 102 Standing; Pulse 126; cc6 16:05 BP 125 / 102; Pulse 104; Resp 18; Pulse Ox 100% on R/A; ld1 14:24 Body Mass Index 24.21 (68.04 kg, 167.64 cm) hb 14:24 Pain Scale: Adult hb NIH Stroke Scale Scores: 16:11 NIHSS Score: 0 yefri ED Course: 14:18 Patient arrived in ED. ra3 14:25 Armando Redman MD is Attending Physician. yefri 14:26 Triage completed. hb 14:28 Arm band placed on. hb 15:00 Raina Miles, RN is Primary Nurse. ld1 15:27 Initial lab(s) drawn, by me, sent to lab. EKG done, by ED staff, reviewed by Armando Redman MD. Inserted saline lock: 20 gauge in right antecubital area, using aseptic technique. Blood collected. Flushed with 10 mL NS. 15:30 PREGU Sent. ld1 15:30 Urinalysis w/ reflexes Sent. ld1 15:40 XRAY Chest (1 view) In Process Unspecified. EDMS 16:03 Patient has correct armband on for positive identification. Placed in gown. Bed in low ld1 position. Call light in reach. Side rails up X2. classroom monitor on. Pulse ox on. NIBP on. Door closed. Noise minimized. Warm blanket given. 16:03 No provider procedures requiring assistance completed. ld1 16:12 Elijah Florentino MD is Referral Physician. yefri 16:28 IV discontinued, intact, bleeding controlled, No redness/swelling at site. ld1 Administered Medications: 15:30 Drug: NS 0.9% IV 1000 ml IV at 1 bolus Per protocol; 1000 mL bolus Route: IV; Rate: 1 ld1 bolus; Site: right antecubital; 16:30 Follow up: Response: No adverse reaction; IV Status: Completed infusion; IV Intake: ld1 1000ml 16:28 Drug: ToPROL XL PO 25 mg PO once Route: PO; ld1 17:48 Follow up: Response: No adverse reaction ld1 Medication: 16:03 VIS not applicable for this client. ld1 Intake: 16:30 IV: 1000ml; Total: 1000ml. ld1 Outcome: 16:12 Discharge ordered by . [facility] 16:28 Discharged to home ambulatory, ld1 16:28 Condition: stable 16:28 Discharge instructions given to patient, Instructed on discharge instructions, follow up and referral plans. Demonstrated understanding of instructions, follow-up care, 16:28 Patient left the ED. ld1 NIH Stroke Scale - NIH Stroke Score Date: 11/28/2023 Time: 16:11 Total Score = 0 10. Dysarthria (speech clarity - read or repeat words) - 0(Normal) 11. Extinction and Inattention (visual/tactile/auditory/spatial/personal) - 0(No abnormality) 1a. Level of Consciousness (LOC) - 0(Alert) 1b. Level of Consciousness (LOC) (Month \T\ Age) - 0(Both) 1c. LOC Commands (Open \T\ Closes Eyes/Inspector Material Disposition) - 0(Both) 2. Best Gaze (Lateral Gaze Paresis) - 0(Normal) 3. Visual Field Loss - 0(No visual loss) 4. Facial Palsy - 0(Normal) 5a. Left Arm: Motor (10-second hold) - 0(No drift) 5b. Right Arm: Motor (10-second hold) - 0(No drift) 6a. Left Leg: Motor (5-second hold - always test supine) - 0(No drift) 6b. Right Leg: Motor (5-second hold - always test supine) - 0(No drift) 7. Limb Ataxia (finger/nose \T\ heel/zambrano - test with eyes open) - 0(Absent) 8. Sensory Loss (pinprick arms/legs/face) - 0(Normal) 9. Best Language: Aphasia (description/naming/reading) - 0(No aphasia) Initials: [facility] Signatures: Dispatcher [employer] Armando Mcmanus MD MD cha Baxter, Heather, RN RN Raina Miles RN RN ld1 Carla Wagner ra3 Chari Smith RN RN cc6
[2023-11-28] MEDS ORDERED: METOPROLOL XL 50 MG TAB PO ONE (16:20)
[2023-11-28 16:41] VITALS: TEMP 98.1
[2023-11-28 16:47] VITALS: BP 125/102
[2023-11-28 16:49] VITALS: O2SAT 100
--- NOTE | 2023-12-01 13:55 | EKG ---
Test Date: 2023-11-28 Test Time: 14:37:23 Boiler Erector: RAMEZ MEASUREMENT RESULTS: Intervals: Rate: 106 AR: 136 QRSD: 74 QT: 352 QTc: 467 [place]: P: 46 AR: 136 QRS: 56 T: 40 INTERPRETIVE STATEMENTS: Sinus tachycardia Otherwise normal ECG Compared to ECG 11/11/2023 16:24:07 Sinus rhythm no longer present Sinus arrhythmia no longer present Electronically Signed On 12-01-23 13:47:46 CDT by Elijah Florentino
== END 2023-11-28 16:28 | disposition home or self-care (01) ==
LOC: ER 14:16
DX: R55 Syncope and collapse (principal); E86.0 Dehydration
CPT/HCPCS: 85025; 81001; 80048; 36415; 83735; 81025; 85379; 80076; 84484; 71045; 96360; 99285; J7030; 93005